=== PATIENT | female | born 1940 | race Caucasian/White ===

== ENCOUNTER 2024-02-04 22:53 | Emergency (ER) | payer OTHER, SELFPAY ==
[2024-02-04 22:54] VITALS: BP 179/73
[2024-02-04 22:55] VITALS: BP 179/73
[2024-02-04 23:00] VITALS: BP 167/96
--- NOTE | 2024-02-04 23:13 | ED.GENMED ---
History of Present Illness
General
Chief Complaint: Fall
Source: patient
Exam Limitations: none
Time Seen by Provider: 02/04/24 22:56
Travel History
Have you had any contact with someone who has COVID-19?: No
Do you have any symptoms of coronavirus? Fever > 100 degrees, chills, cough, shortness of breath, sore throat, loss of taste or smell, muscle aches, or headache?: No
History of Present Illness
History of Present Illness:
See MDM
Past History
Past History
ED Past Medical History: CHF, GERD, HTN, Hypercholesterolemia, Seizures and Other (Rheumatoid arthritis, psoriasis); Negative CAD or IDDM
ED Past Surgical History: Gynecological and Orthopedic
Social History
Tobacco: Non-smoker
Alcohol: Chronic alcoholic
Drug: None
Personal:
Living: with family
Employment: Employed
Family History
Family History: Hypertension
Phy Exam
Physical Exam
Physical Exam:
See MDM
Course
Orders/Labs/Results
Orders:
Orders
02/04/24 23:04
CT Head W/o Iv Contrast Urgent
Comment:
Reason For Exam: Fall, R sided head injury
02/04/24 23:24
Complete Blood Count/With Diff Urgent
Comprehensive Metabolic Panel Urgent
02/05/24 00:10
Insulin Aspart [NOVOLOG vial] 7 units SC NOW STA
02/05/24 00:50
Bedside Glucose- Treatment ONCE
02/05/24 01:08
Glucose Urgent
02/05/24 01:29
0.9% Sodium Chloride 1000 ml [Nss] 1,000 ml IV BOLUS
Abnormal Lab Results
02/04/24 02/05/24
2324 01:00
WBC 11.7 H 10^3/uL
(4.8-10.8)
MCH 31.4 H pg
(27.0-31.0)
Absolute Neuts (auto) 9.2 H 10^3/uL
(1.4-6.5)
Absolute Lymphs (auto) 1.1 L 10^3/uL
(1.2-3.4)
Absolute Monos (auto) 1.1 H 10^3/uL
(0.1-0.6)
Neutrophils % 78.8 H %
(42.2-75.2)
Lymphocytes % 9.3 L %
(20.5-51.1)
Monocytes % 9.5 H %
(1.7-9.3)
Sodium 132 L mmol/L
(135-145)
Carbon Dioxide 21 L mmol/L
(22-30)
BUN 22 H mg/dl
(7-17)
Glucose 548 H* mg/dl
(70-99)
POC Glucose 469 H* mg/dl
(70-99)
02/04/24 23:24
Vital Signs
Initial and Last Documented VS:
Initial Vital Signs
Temp Pulse Resp BP Pulse Ox
97.9 F 100 16 179/73 95
02/04/24 22:54 02/04/24 22:54 02/04/24 22:54 02/04/24 22:54 02/04/24 22:54
Last Documented Vital Signs
Temp Pulse Resp BP Pulse Ox
97.9 F 91 16 167/96 94
02/04/24 22:54 02/05/24 00:45 02/04/24 22:54 02/04/24 23:00 02/05/24 00:45
MDM/Problems Addressed
Differential Diagnosis Includes:
HPI and MDM Narrative:
83-year-old female presenting with head injury after fall. Patient states she woke up to close her blinds and states it was dark. She states she bent down to close her blinds and she fell forward hitting her head. She scraped her feet, her knees
and her shoulder. She is unconcerned about fracture but states she was too weak to get up
On exam, she has mild hematoma to right forehead. She is conversing and appears to be in no acute distress. She has abrasions to her feet and shoulder but no bony tenderness. Will obtain basic blood work and CT head
Physical exam
General: Well appearing and non-toxic
HEENT: protecting airway. Small hematoma right forehead
Neck: Nontender, supple
CV: No evidence of cyanosis. Regular rate and rhythm
Resp: No accessory muscle use
Abd: Non-distended
Extremities: No bony tenderness or obvious deformities to any extremity
Neuro: alert
Psych: Normal affect
Skin: Abrasions to feet and left shoulder
Problems Addressed including Acute and Chronic Conditions affecting care:
1. Head injury
Acuity: acute
Prognosis: stable
Details: Given age and fall, will obtain CT head
2. Hyperglycemia
Acuity: acute
Prognosis: unstable
Details: No evidence of DKA. Will give insulin
3. [ ]
Acuity: acute
Prognosis: stable
Details:
4. [ ]
Acuity: acute
Prognosis: stable
Details:
5. [ ]
Acuity:
Prognosis:
Details:
Updates
Patient found to be hyperglycemic. She has a history of diabetes but states she takes pills only. Will give dose of insulin. There is no evidence to suggest DKA
12:10 AM patient radiology indicating 3 mm frontotemporal subdural hematoma
Case discussed with neurosurgery who recommended transfer
1:30 AM Case discussed with admitting trauma surgeon Dr. Trotter. Will place in cervical collar
Differential Diagnosis (but not limited to): Intracranial hemorrhage, contusion, abrasion
Testing considered: Urinalysis
Drug therapy (if applicable): OTC meds, please see d/c instruction regarding Rx drugs
Amount and/or Complexity of Data Reviewed
Clinical info obtained from: Patient
External data reviewed: N/A
Labs I independently reviewed (but not limited to): Hyperglycemia
Radiology: N/A
Pulse Ox: not hypoxic
EKG independently reviewed: N/A
Gas Maker Helper: N/A
Critical Care: The high probability of a clinically significant, sudden or life threatening deterioration of the neurovascular system(s) required my full and direct attention, intervention and personal management. The aggregate critical care time
was 33 minutes. This time is in addition to time spent performing reported procedures but includes the following:
[x] Data Review and interpretation
[x] Patient assessment and monitoring of vital signs
[x] Documentation
[x] Medication orders and management
Risk of Complication:
Social Determinants of health: Good social support
Discussed with other providers: Neurosurgery, Trauma
Escalation of Care includes Admit/Obs: Given the traumatic subdural hematoma, will transfer Trauma Center
Occasional wrong word or 'sound a like' substitutions may have occurred due to the inherent limitations of voice recognition software. Read the chart carefully and recognize, using context, where substitutions have occurred.
*Critical Care Note
Total Time (30-74mins, 75-104mins- exclusive of procedures): 33 min
ED Attending Note
-
Portions of this chart may have been created with voice recognition software.� Occasional wrong word or��sound alike� substitutions may have occurred due to the inherent limitations of voice recognition software.
Discharge Plan
Departure
Patient Disposition: Acute Care Hospital
Date of Disposition: 02/05/24
Time of Disposition: 01:20
Discharge Problem:
SDH (subdural hematoma), Acute hyperglycemia
Prescriptions:
No Action
losartan 50 MG tablet
50 mg PO BID
Patient Comments:
07/12/16 unable to confirm with patient shes confused. All rx per pharmacy
levetiracetam 500 MG tablet
500 mg PO DAILY
amlodipine 2.5 MG tablet
2.5 mg PO DAILY
levothyroxine 50 MCG tablet
50 mcg PO DAILY
simvastatin 20 MG tablet
20 mg PO HS
furosemide [Lasix] 40 MG tablet
40 mg PO Q48H
famotidine 20 MG tablet
20 mg PO DAILY
acetaminophen 325 MG tablet
650 mg PO Q4HPRN PRN (Reason: FEVER OR PAIN)
glipizide 5 MG tablet extended release 24hr
5 mg PO DAILY 30 Days Qty: 30 3RF
tramadol 50 MG tablet
50 mg PO Q6HPRN PRN (Reason: moderate pain) Qty: 10 0RF
metformin 500 MG tablet extended release 24 hr
500 mg PO DAILY 30 Days Qty: 30 3RF
Referrals:
Zee Louis MD [Family Provider] -
Hospital Transfer
Other hospital: [facility]
I certify that the patient requires transfer: Yes
Discussed case with accepting physician: Dr. Trotter
Reason for transfer: higher level of care
Interventions
Interventions:
*Risk Screen - Suicide Last Done: 02/04/24 22:54
*General Assessment Last Done: 02/04/24 23:14
ED- Fall Risk Assessment Last Done: 02/04/24 23:14
ED-Musculoskeletal Assessment Last Done: 02/04/24 23:14
ED- Neurological Assessment Last Done: 02/04/24 23:14
ED-Skin Assessment Last Done: 02/04/24 23:14
Discharge Date and Time
Print Language: MALAY
[2024-02-04 23:38] LABS: % Basophils 0.5 % (0-2); % Eosinophils 1.6 % (0-6); % Immature Granulocytes 0.3 % (0-0.5); % Lymphocytes 9.3 % (20.5-51.1); % Monocytes 9.5 % (1.7-9.3); % Neutrophils 78.8 % (42.2-75.2); Absolute Basophils 0.1 10^3/uL (0-0.2); Absolute Eosinophils 0.2 10^3/uL (0-0.7); Absolute Lymphocytes 1.1 10^3/uL (1.2-3.4); Absolute Monocytes 1.1 10^3/uL (0.1-0.6); Absolute Neutrophils 9.2 10^3/uL (1.4-6.5); Hematocrit 43.5 % (37.0-47.0); Hemoglobin 15.1 g/dL (12.0-16.0); Mean Corp Hgb Conc. 34.7 g/dL (33.0-37.0); Mean Corpuscular Hgb 31.4 pg (27.0-31.0); Mean Corpuscular Volume 90.4 fL (81.0-99.0); Mean Platelet Volume 10.1 fL (7.4-10.4); Nucleated Red Blood Cells % 0 %; Platelet Count 245 10^3/uL (130-400); Red Blood Cell Count 4.81 10^6/uL (4.20-5.40); Red Cell Dist. Width 12.5 % (11.5-14.5); White Blood Cell Count 11.7 10^3/uL (4.8-10.8)
[2024-02-04 23:57] LABS: ALT (SGPT) 14 U/L (0-35); AST (SGOT) 19 U/L (14-36); Albumin 4.1 g/dl (3.5-5.0); Alkaline Phosphatase 81 U/L (38-126); Blood Urea Nitrogen 22 mg/dl (7-17); Calcium 10.1 mg/dl (8.4-10.2); Carbon Dioxide 21 mmol/L (22-30); Chloride 104 mmol/L (98-107); Glucose 548 mg/dl (70-99); Potassium 4.3 mmol/L (3.5-5.1); Sodium 132 mmol/L (135-145); Total Bilirubin 0.5 mg/dl (0.2-1.3); Total Protein 7.2 g/dl (6.3-8.2); eGFR > 60.00
[2024-02-05] MEDS: NOVOLOG vial 7 UNITS SC (00:22)
[2024-02-05 01:00] VITALS: BP 171/67
[2024-02-05 01:01] LABS: Glucose - Point of Care 469 mg/dl (70-99)
[2024-02-05] MEDS: NSS 1000 IV (01:37)
[2024-02-05 01:45] LABS: Glucose 489 mg/dl (70-99)
[2024-02-05 02:00] VITALS: BP 161/62
== END 2024-02-05 03:06 | disposition short-term general hospital (02) ==
LOC: EMR 22:53
PROVIDERS: EMERGENCY PHYSICIAN Student in an Organized Health Care Education/Training Program; FAMILY PHYSICIAN Family Medicine
DX: S06.5XAA Traumatic subdural hemorrhage with loss of consciousness status unknown, initial encounter (principal); W19.XXXA Unspecified fall, initial encounter; E11.65 Type 2 diabetes mellitus with hyperglycemia
CPT/HCPCS: 99291; 96372; 70450; 80053; 82947; 82962; 85025

== ENCOUNTER 2025-02-02 17:05 | Observation (INO) | payer OTHER, SELFPAY ==
[2025-02-02] VITALS (11 sets, daily range): BP systolic 131–169; BP diastolic 56–94; PULSE 80; O2SAT 96; BMI 27.0
[2025-02-02 13:00] LABS: % Basophils 0.6 % (0-2); % Eosinophils 1.8 % (0-6); % Immature Granulocytes 0.3 % (0-0.5); % Lymphocytes 14.3 % (20.5-51.1); Absolute Basophils 0.1 10^3/uL (0-0.2); Absolute Eosinophils 0.2 10^3/uL (0-0.7); Absolute Lymphocytes 1.8 10^3/uL (1.2-3.4); Absolute Monocytes 1.4 10^3/uL (0.1-0.6); Hematocrit 39.1 % (37.0-47.0); Hemoglobin 13.3 g/dL (12.0-16.0); Mean Corpuscular Hgb 29.3 pg (27.0-31.0); Mean Corpuscular Volume 86.1 fL (81.0-99.0); Mean Platelet Volume 10.3 fL (7.4-10.4); Nucleated Red Blood Cells % 0 %; Platelet Count 245 10^3/uL (130-400); Red Blood Cell Count 4.54 10^6/uL (4.20-5.40); Red Cell Dist. Width 12.3 % (11.5-14.5); White Blood Cell Count 12.4 10^3/uL (4.8-10.8)
[2025-02-02 13:16] LABS: ALT (SGPT) 11 U/L (0-35); AST (SGOT) 16 U/L (14-36); Albumin 3.9 g/dl (3.5-5.0); Alkaline Phosphatase 78 U/L (38-126); Blood Urea Nitrogen 19 mg/dl (7-17); Calcium 9.8 mg/dl (8.4-10.2); Carbon Dioxide 26 mmol/L (22-30); Chloride 99 mmol/L (98-107); Glucose 453 mg/dl (70-99); Potassium 4.1 mmol/L (3.5-5.1); Sodium 135 mmol/L (135-145); Total Bilirubin 0.7 mg/dl (0.2-1.3); Total Protein 6.9 g/dl (6.3-8.2); eGFR > 60.00
[2025-02-02] MEDS: NOVOLOG vial 10 UNITS SC (13:46)
[2025-02-02] MEDS: NSS 1000 IV (13:47)
[2025-02-02] MEDS: TYLENOL 1000 MG PO (14:42)
--- NOTE | 2025-02-02 14:46 | ED.GENMED ---
History of Present Illness
General
Chief Complaint: Fall
Source: patient
Exam Limitations: none
Time Seen by Provider: 02/02/25 12:54
Nursing documentation reviewed up to this point in time: agreed with
History of Present Illness
History of Present Illness:
84-year-old female with past medical history of CHF hypertension, diabetes, seizure disorder alcohol abuse presenting to the emergency department today with concerns of a fall landing on the buttock region. Did not hit head did not lose
consciousness. EMS brought her in and claims that her sugar was in the 400s.
Past History
Past History
ED Past Medical History: CHF, GERD, HTN, Hypercholesterolemia, Seizures and Other (Rheumatoid arthritis, psoriasis); Negative CAD or IDDM
ED Past Surgical History: Gynecological and Orthopedic
Social History
Tobacco: Non-smoker
Alcohol: Chronic alcoholic
Drug: None
Personal:
Living: with family
Employment: Employed
Family History
Family History: Hypertension
Review of Systems
Review of Systems
Allergies reviewed?: Yes
All Other Systems: ROS reviewed and negative except as documented in HPI and ROS
Phy Exam
Physical Exam
Physical Exam:
GENERAL: Alert , in no apparent distress
EYE: pupils equal and reactive
NECK: Supple, no significant adenopathy.
ENT: o/p clr, mmm.
CARDIAC: Regular rate and rhythm .
LUNGS: Clear breath sounds bilaterally, no acute respiratory distress, no wheezes/rales/rhonchi
ABDOMEN: Soft, without focal tenderness, no r/g, no cvat
NEUROLOGICAL: Alert and oriented, no focal neuro deficits
SKIN: Warm and dry, skin intact.
MUSCULOSKELETAL: Discomfort to the low back and tailbone region. No overlying skin changes no edema, well perfused.
PSYCH: Normal and appropriate interaction.
Course
Orders/Labs/Results
Orders:
Orders
02/02/25 12:48
CMP [Comprehensive Metabolic Panel] Urgent
Complete Blood Count/With Diff Urgent
02/02/25 13:30
Urinalysis Reflex To Culture Urgent
0.9% Sodium Chloride 1000 ml [Nss] 1,000 ml IV BOLUS
Insulin Aspart [NOVOLOG vial] 10 units SC NOW STA
Coccyx/Sacrum, 2 View CR [CR Sacrum/coccyx Min 2 View] Urgent
Comment:
Reason For Exam: fall hit low back
Lumbar Spine, 2 or 3 View [CR Lumbar Spine 2 Or 3 Views] Urgent
Comment:
Reason For Exam: low back pain
02/02/25 14:38
Acetaminophen [Tylenol] 1,000 mg PO NOW STA
02/02/25 14:47
Bedside Glucose- Treatment ONCE
Pt Eval And Treat Urgent
Activity Level: Ambulate
02/02/25 16:25
CT Pelvis W/o Iv Contrast Urgent
Comment:
Reason For Exam: fall low back pain, cant weight bear
02/02/25 16:26
Case Management Consult ONCE
Case Management Consult: Discharge Planning
02/02/25 16:27
Add On- LAB Urgent
Tests Added?: alcohol level
Abnormal Lab Results
02/02/25 02/02/25
12:48 14:32
WBC 12.4 H 10^3/uL
(4.8-10.8)
Absolute Neuts (auto) 9.0 H 10^3/uL
(1.4-6.5)
Absolute Monos (auto) 1.4 H 10^3/uL
(0.1-0.6)
Lymphocytes % 14.3 L %
(20.5-51.1)
Monocytes % 11.0 H %
(1.7-9.3)
BUN 19 H mg/dl
(7-17)
Glucose 453 H* mg/dl
(70-99)
POC Glucose 357 H mg/dl
(70-99)
02/02/25 12:48
02/02/25 12:48
Vital Signs
Initial and Last Documented VS:
Initial Vital Signs
BP Pulse Ox
161/86 95
02/02/25 12:37 02/02/25 12:37
Last Documented Vital Signs
Temp Pulse Resp BP Pulse Ox
98.1 F 84 17 151/64 93
02/02/25 12:39 02/02/25 15:15 02/02/25 15:15 02/02/25 14:00 02/02/25 15:15
MDM/Problems Addressed
MDM/Problems Addressed:
84-year-old female presenting to the emergency department today with concerns of a trip and fall hitting her low back did not hit her head did not lose consciousness. Generally feels well otherwise. Sugar level elevated here was given fluids and
dose of insulin. X-rays performed of the low back showing arthritic changes but no evidence of emergent injury.
ED Attending Note
-
Portions of this chart may have been created with voice recognition software.� Occasional wrong word or��sound alike� substitutions may have occurred due to the inherent limitations of voice recognition software.
Discharge Plan
Departure
Patient Disposition: Admit
Date of Disposition: 02/02/25
Time of Disposition: 16:30
Admit to: Med/Surg
Admit to doctor: Sayday
Presentation/result/management discussed w/ accepting MD/DO: Hospitalist
Patient with high blood pressure during this ER visit?: No
Condition: Good
Covid-19: Not Applicable
Discharge Problem:
Fall, Ambulatory dysfunction, Back pain
Prescriptions:
No Action
losartan 50 MG tablet
50 mg PO DAILY
levetiracetam 500 MG tablet
500 mg PO DAILY
amlodipine 2.5 MG tablet
2.5 mg PO DAILY
levothyroxine 50 MCG tablet
50 mcg PO DAILY
simvastatin 20 MG tablet
20 mg PO HS
acetaminophen 325 MG tablet
325 mg PO HS
metformin 500 MG tablet extended release 24 hr
500 mg PO DAILY 30 Days Qty: 30 3RF
glipizide 10 mg Tablet
10 mg PO DAILY
sertraline 50 mg Tablet
50 mg PO DAILY
Referrals:
Jack Santa MD [Family Provider] -
Interventions
Interventions:
*Risk Screen - Suicide Last Done: 02/02/25 12:42
*Neglect/Abuse Screening Last Done: 02/02/25 12:42
*ED- Fall Risk Assessment Last Done: 02/02/25 12:44
*ED COVID-19 Vaccine History Last Done: 02/02/25 12:44
ED-Musculoskeletal Assessment Last Done: 02/02/25 12:44
ED- Neurological Assessment Last Done: 02/02/25 12:44
ED-Skin Assessment Last Done: 02/02/25 12:45
Discharge Date and Time
Print Language: SUDANESE
[2025-02-02 15:44] LABS: Glucose - Point of Care 357 mg/dl (70-99)
--- NOTE | 2025-02-02 16:31 | HPS.HSE ---
Family Physician
-
Family Physician: Jack Santa
Chief Complaint
-
fall
History of Present Illness
84-year-old female with past medical history of CHF hypertension, diabetes, seizure disorder alcohol abuse presenting to the emergency department today with concerns of a fall landing on the buttock region.her knee clipped and lost the balance and
fell on her buttocks. she does not remember hitting the head. but she was having headache when she got here in the ER. denied dizzy, lightheaded. denied fever, chills,congestion and cough. denied chest pain, sob. denied abdominal pain,n,v,d. denied
dysuria or hematuria.
patient was evaluated by PT in the ER. patient was not able to walk. admitting for further management.
Medical History
Past Medical History
Past Medical History: Reports Other
Additional Past Medical History:
Hypertension, hypothyroidism, type 2 diabetes, seizure, depression, psoriasis, right heart failure, breast cancer, arthritis
Past Surgical History: Reports Other
Additional Past Surgical History:
Right breast lumpectomy, bilateral tubal ligation
Social History
Tobacco: Non-smoker
Alcohol: None
Drug: None
Personal: Single
Living: Alone
Family History
Family History: Not pertinent
Allergies / Home Medications
Allergies reflects when Allergies were last updated in [facility].
Home Medications with original date entered in [facility]
Allergy/Medication List:
Allergies
Allergy/AdvReac Type Severity Reaction Status Date / Time
latex [Latex] Allergy Itching Verified 06/29/21 19:55
Home Medications
amlodipine 2.5 mg tablet 2.5 mg PO DAILY Blood pressure 07/12/16
levetiracetam 500 mg tablet 500 mg PO DAILY Seizures 07/12/16
levothyroxine 50 mcg tablet 50 mcg PO DAILY Thyroid 07/12/16
losartan 50 mg tablet 50 mg PO DAILY Blood pressure 07/12/16
simvastatin 20 mg tablet 20 mg PO HS High cholesterol 07/12/16
acetaminophen 325 mg tablet 325 mg PO HS 12/27/16
metformin 500 mg tablet,extended release 24 hr 500 mg PO DAILY 30 days #30 tabs 07/02/21
glipizide 10 mg tablet 10 mg PO DAILY 02/02/25
sertraline 50 mg tablet 50 mg PO DAILY 02/02/25
Review of Systems
-
Constitutional: Reports No Symptoms
EENT: Reports No Symptoms
Respiratory: Reports No Symptoms
Cardiac: Reports No Symptoms
Abdomen/GI: Reports No Symptoms
: Reports No Symptoms
Musculoskeletal: Reports No Symptoms
Skin: Reports No Symptoms and Other (Left LE with flaky red skin)
Neurological: Reports Headache
Endocrine: Reports No Symptoms
Hematologic/Lymphatic: Reports No Symptoms
Psych: Reports No Symptoms
Physical Exam
Vital Signs
Vital Signs
Temp Pulse Resp BP Pulse Ox
98.1 F 84 17 151/64 93
02/02/25 12:39 02/02/25 15:15 02/02/25 15:15 02/02/25 14:00 02/02/25 15:15
Physical Exam
General: Well Developed, Well Nourished and No Apparent Distress
HEENT: NormoCephalic, Moist mucous membranes and Atraumatic
Respiratory: Clear
Cardiac: S1/S2 and Regular Rhythm; No Murmur or Rub
GI: Soft, Non Tender, Non Distended and Normal Bowel Sounds; No Organomegaly
Rectal: Deferred by Provider
Musculoskeletal: No Clubbing, No Cyanosis and No Edema
Skin: Rash and Other (left LE red flaky skin)
Neuro: AO x 3 and Nonfocal/grossly intact
Psych: Calm
Laboratory Results
-
02/02/25 12:48
02/02/25 12:48
Laboratory Results
Total Bilirubin 0.7 mg/dl (0.2-1.3) 02/02/25 12:48
AST 16 U/L (14-36) 02/02/25 12:48
ALT 11 U/L (0-35) 02/02/25 12:48
Alkaline Phosphatase 78 U/L (38-126) 02/02/25 12:48
Data Reviewed
-
Lab Data: Labs Reviewed by me
Impression/Plan
-
#ambulatory dysfunction/fall
-x ray with no acute fracture
-sacrum and coccyx with the impression of Severe multilevel lumbar discogenic degenerative disease. 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
spondylolysis).Grade 1 anterolistheses of L3 on L4 and L4 on L5 secondary to severe facet joint arthrosis. Mild right convex curvature of the lower lumbar spine.
-lumbar spine x ray with severe multilevel lumbar discogenic degenerative disease. 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
-obtain CT pelvis
-will obtain head CT
-PT/OT consulted
#leukocytosis likely stress reaction
-wbc 12.4
-ctm
#type 2 DM with hyperglycemia
-blood sugar elevated in 453
- Glipizide
-hold metoformin
- Sliding scale
- CHO diet
-obtain BHB
# History of seizure
- Keppra continued
# Depression
- Sertraline
# Hyperlipidemia
- Statin continued
Hypertension
- Norvasc, losartan continue with hold parameters
DM-II
- Stable. Continue outpatient glipizide.
- Monitor glucose and cover with SSI if needed.
Hypothyroidism
- Stable. Continue current dose of T4 supplementation.
DVT Prophylaxis: Lovenox
Code Status: DNR
[2025-02-02 16:35] LABS: Glucose - Point of Care 219 mg/dl (70-99)
--- NOTE | 2025-02-02 17:06 | W.PN.UPDATE ---
Addendum entered and electronically signed by Lele Krishnan MD 02/03/25 08:11:
02/02/25 CT pelvis
No osseous pelvic or sacral fracture.
No hip fracture or dislocation.
Original Note:
Update Note
Progress Note Update
This note serves as an addendum to the H&P by drill rig operator helper FERNANDO
Kelsea JULEE
HPI
84M [facility] with HX HTN, DM-II , Sz disorder, , HLD and hypothyroidism , HX chr gait dysfunction, balance dysfunction , use walker, [facility] s/p OSH Fall :
- s/p fall reports loss balance and landing on the buttocks
- denied LoC
- report LBP
- hi BG 400s
Reviewed VS: AFVSS
PE
Gen: Not toxic , Obese
HEENT: atraumatic
Neck: supple
Lungs: CTA
Cor: RRR S1 s2
Abdomen: benign
CLINICAL TRAINING SPECIALIST: AAO3
MS: No pint tenderness
Psych: Nl mood and affect
Data
WCC 12.4
Unremarkable BMP
AG 10
Nl Cr.
Nl eGFR
BG 453 s/p Insulin 10 units given
Pending BHB
Pending UA
Pending HCT w/o
Pending pelvis w/o
CR Lumbar Spine 2 Or 3 Views; CR Sacrum/coccyx Min 2 View
LUMBAR SPINE:
1. Severe multilevel lumbar discogenic degenerative disease.
2. 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
3. Grade 1 anterolistheses of L3 on L4 and L4 on L5 secondary to severe facet joint arthrosis.
4. Mild right convex curvature of the lower lumbar spine.
SACRUM and COCCYX:
1. Moderate bilateral osteoarthritis of the sacroiliac joints.
2. Mild bilateral osteoarthritis of the hips.
Last hospitalist admission: 06/30/2021 - 07/02/2021
ASSESSMENT & PLAN
acute mid lower back pain s/p fall complicated with acute gait dysfunction : No XR Fxs
S/P fall and landed on butts due to loss balance
HX Chr gait dysfunction need walker
- PT eval and need significant assistance
- agree with CT Pelvis to r/o occult Fx
- f/p CT pelvis and HCT to complete w/u
- PT/OT
- To evaluate for safe DC plan
Hyperglycemia : No AG MA
Uncontrol DM
HX DMT2
- check UA to r/o acute infection
- check BHB
- hold metformin
- c/w Glipizide
- add ISS moderate scale
- ADA 2000 toño
- Trend BG
Essential Hypertension
- Stable.
- Continue PATTERNMAKER APPRENTICE METAL amlodipine and Losartan
Hypothyroidism
- Stable.
- Continue current dose of T4 supplementation.
HLD
- on Simvastatin
Depression
- stable
- on sertraline
Remote HX Sz
- c/w PATTERNMAKER APPRENTICE METAL Keppra
DVT Px: LMWH
DNR
IP MS
[2025-02-02 17:09] LABS: Alcohol None Detected
[2025-02-02 17:21] LABS: B-Hydroxybutyrate 0.83 mmol/L (0.02-0.27)
[2025-02-02] MEDS: TYLENOL 650 MG PO (18:43)
--- NOTE | 2025-02-02 20:00 | PTCARENOTE ---
Pt recieved from ED via stretcher at 1999. Pt pleasant, AAOx3, and VSS. Pt pulled over into bed from stretcher. Pt complains of 6/10 pain on her buttocks. Pt receptive to room and call maza. Pt bed in lowest position and call maza within reach. Pt
educated on importance of call maza usage, pt relays understanding and cooperation. Will continue with current plan of care.
[2025-02-02] MEDS: LOVENOX 40 MG SC (20:48)
[2025-02-02] MEDS: LIPITOR 10 MG PO (20:49)
[2025-02-02 20:56] LABS: Glucose - Point of Care 203 mg/dl (70-99)
[2025-02-03 00:57] LABS: Urine Albumin 3+ (Neg - Trace); Urine Bilirubin Negative (Negative); Urine Character Clear (Clear); Urine Color Yellow; Urine Glucose 4+ (Negative); Urine Ketone Negative (Negative); Urine Leukocyte 1+ (Negative); Urine Nitrite Negative (Negative); Urine Occult Blood 4+ (Negative); Urine Urobilinogen Negative (Neg - 1+)
[2025-02-03 01:21] LABS: Urine Amorphous Seen; Urine Squamous Cell >30 /LPF (Few)
[2025-02-03 01:23] LABS: Urine Bacteria Moderate (Negative); Urine Red Blood Cell 50-60 /HPF (0-2)
[2025-02-03] MEDS: SYNTHROID 50 MCG PO (05:15)
[2025-02-03 06:46] LABS: Hematocrit 37.9 % (37.0-47.0); Hemoglobin 12.8 g/dL (12.0-16.0); Mean Corp Hgb Conc. 33.8 g/dL (33.0-37.0); Mean Corpuscular Hgb 29.3 pg (27.0-31.0); Mean Corpuscular Volume 86.7 fL (81.0-99.0); Mean Platelet Volume 9.9 fL (7.4-10.4); Platelet Count 218 10^3/uL (130-400); Red Blood Cell Count 4.37 10^6/uL (4.20-5.40); Red Cell Dist. Width 12.9 % (11.5-14.5); White Blood Cell Count 8.5 10^3/uL (4.8-10.8)
--- NOTE | 2025-02-03 07:29 | W.PN.HOSP.TC ---
Today's Communication/Plan
-
Glycemic control
PT/OT
wound care
discharge planning SNF rehab
Assessment / Plan
Assessment / Plan
Physical Exam
General: no acute distress appears comfortable at this time
HEENT: NormoCephalic, Moist mucous membranes and Atraumatic
Respiratory: Clear
Cardiac: S1/S2 and Regular Rhythm; No Murmur or Rub
GI: Soft, Non Tender, Non Distended and Normal Bowel Sounds; No Organomegaly
Musculoskeletal: No Clubbing, No Cyanosis, No Edema, ulnar deviation fingers hands bilateral likely d/t rheumatoid arthritis
Skin: b/l LE red flaky skin
Neuro: AO x 3 Conversant coherent
Psych: Calm
84F HFpEF HTN DM Sz d/o depression here for fall at home, lives alone, significant ambulatory dysfunction, PT eval recommended SNF rehab. Patient also presenting with uncontrolled diabetes severe hyperglycemia without anion gap acidosis.
#ambulatory dysfunction/fall
-x ray with no acute fracture
-sacrum and coccyx with the impression of Severe multilevel lumbar discogenic degenerative disease. 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
spondylolysis).Grade 1 anterolistheses of L3 on L4 and L4 on L5 secondary to severe facet joint arthrosis. Mild right convex curvature of the lower lumbar spine.
-lumbar spine x ray with severe multilevel lumbar discogenic degenerative disease. 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
-CT pelvis appreciated no acute abn's
-CT head appreciated not acute abn's
-PT/OT consult appreciated SNF rehab
#leukocytosis likely stress reaction
resolved
#type 2 DM with hyperglycemia
-blood sugar elevated in 453 since improved
-BHB mildly elevated
-no anion gap acidosis
-DM SHOW CARD WRITER eval appreciated, cont oral diabetic medications and insulin as per SHOW CARD WRITER
# History of seizure
- Keppra continued
# Depression
- Sertraline
# Hyperlipidemia
- Statin continued
Hypertension
- Norvasc, losartan continue with hold parameters
Hypothyroidism
- Stable. Continue current dose of T4 supplementation.
Coccyx stage 2 pressure injuries.
Bilateral buttocks stage 3 pressure injury.
Scattered dermal pink/scabbed abrasions Le's and R index finger suspect from patient picking her skin.
Heels blanchable red.
Abdominal fold with mild MASD.
-Wound care consult appreciated
-cont local wound care
DVT Prophylaxis: Lovenox
Code Status: DNR
I spent a total of 45 minutes with the patient or on the floor. More than 50% of this time involved counseling and coordination of care.
Anticipated Discharge: 24 - 48 hours
Subjective/Interval History
-
Date of Service: February 03, 2025
No acute distress sitting up comfortably in bed. Patient reports overall feeling well. Denies new acute issues at this time.
Objective Data
-
Labs:
Laboratory Results
02/03/25
06:11
WBC 8.5
Hgb 12.8
Hct 37.9
Plt Count 218
Vital Signs:
Vital Signs
Temp Pulse Resp BP Pulse Ox
97.6 F 79 18 140/65 94
02/02/25 22:43 02/02/25 22:43 02/02/25 22:43 02/02/25 22:43 02/02/25 22:43
I&O
02/02/25 02/03/25 02/04/25
06:59 06:59 06:59
Output Total 500 / 500
Balance -500 / -500
[2025-02-03] MEDS: KEPPRA 500 MG PO (07:44)
[2025-02-03] MEDS: GLUCOTROL 10 MG PO ×2 (07:44→17:20)
[2025-02-03] MEDS: COZAAR 50 MG PO (07:44)
[2025-02-03] MEDS: ZOLOFT 50 MG PO (07:44)
[2025-02-03] MEDS: NORVASC 2.5 MG PO (07:44)
[2025-02-03 07:50] VITALS: BP 164/78
[2025-02-03 08:28] LABS: Glucose - Point of Care 253 mg/dl (70-99)
[2025-02-03 08:34] LABS: Glycohemoglobin (HgbA1c) 15.5 % (4.0-5.6)
[2025-02-03] MEDS: NOVOLOG FLEXPEN-MODERATE RESISTANCE 5 UNITS SC ×2 (09:30→13:26)
--- NOTE | 2025-02-03 10:30 | WOUNDNOTE ---
[facility] RN note: Patient admitted with ambulation dysfunction, fall prior to admission. Patient lives alone.
See H&P for complete history.
PMH: CHF, HTN, DM, seizure disorder, alcohol use disorder, psoriasis, breast cancer, lumpectomy, arthritis.
Wound Location and type/assessment: Patient admitted with: Coccyx stage 2 pressure injuries. Bilateral buttocks stage 3 pressure injury. Scattered dermal pink/scabbed abrasions Le's and R index finger suspect from patient picking her skin. Heels
blanchable red. Abdominal fold with mild MASD.
Appetite: on 2000 calorie diet.
Pressure redistribution devices in place: [employer] air bed with static air overlay.
Plan: Coccyx/buttocks dressing changed. Silicone border foam applied to R lateral ankle and R anterior ankle abrasions. Protective foam to heels. Patient turned with help from [facility] RN retail event assistant [place]. Heels off bed with pillow. Air chair cushion
given.
Will confirm orders with Dr. Daugherty and discussed with MURRAY Guerin.
Care plan to be updated and will follow as needed.
Note to case management of equipment requested for discharge: Air mattress.
Recommend follow up at wound care center upon discharge.
--- NOTE | 2025-02-03 10:37 | WOUNDNOTE ---
SACRAL/COCCYX/BUTTOCKS
[2025-02-03 11:28] VITALS: BP 135/65; PULSE 68
[2025-02-03 11:45] VITALS: BMI 27.0
[2025-02-03 13:26] LABS: Glucose - Point of Care 299 mg/dl (70-99)
[2025-02-03] MEDS: GLUCOPHAGE XR EXTENDED RELEASE 500 MG PO (13:27)
--- NOTE | 2025-02-03 13:42 | PN.DE.MGMTRT ---
Insulin Management
- -
02/03/2025: Diabetes Management Consult
84 year old female admitted s/p fall at home. PMH: CHF, HTN, Seizure disorder, ETOH abuse and T2DM.
Pt reports she does not adhere to any dietary restrictions and that her diet consists mainly of a high CHO concentrated diet (eats ice cream daily)
Was taking Glipizide 10mg QD and Metformin 500mg daily. She doesn't have a glucose monitor and doesn't test her blood sugars. A1C 15.5%, Cr 0.6, eGFR >60.
Pt awake, alert, oriented, offers no complaints, able to discuss diabetes management
Noted for persistent Hyperglycemia since admission, glucose range 219 to 357 requiring 5 units of corrective insulin with meals.
FBG 253 this AM, 299 pre-lunch today. Discussed diabetes management options of MDI vs basal insulin combo with oral agents.
Pt states she will not be able to manage taking insulin 4 times a day. She is receptive to 1 insulin shot a day in combination with oral diabetes medications.
Will start Lantus 15 units daily, 1st does NOW and will adjust her oral agents to Metformin 1000mg BID and Glipizide 5mg BID
Cont moderate corrective insulin with meals. Diabetes Nurse Educator will see pt tomorrow for monitor and insulin instructions.
Diabetes History
- -
Type of Diabetes: 2 requiring insulin
Pre-Admission Diabetes Regimen
Lab Results
Hemoglobin A1c 15.5 % (4.0-5.6) H 02/03/25 06:11
Insulin Pump Settings
IP Diabetes Regimen
02/02/25 02/02/25 02/02/25
14:32 16:32 20:54
POC Glucose 357 H 219 H 203 H
02/03/25 02/03/25
08:27 13:24
POC Glucose 253 H 299 H
Patient Education
[2025-02-03] MEDS: LANTUS 0.15 UNITS SC (14:33)
--- NOTE | 2025-02-03 15:57 | WOUNDNOTE ---
Pipe Hansen re: recommend an air mattress at SNF for patient. She has coccyx and buttocks pressure injuries.
[2025-02-03 16:05] VITALS: BP 158/82
--- NOTE | 2025-02-03 16:28 | CM ---
Patient admitted under obs, GUPTA letter provided to patient, health services manager reviewed patient's chart and patient lives alone in a town home, patient has 2 stair glides in home and 2 walkers, one on each floor, patient independent with adl's and uses
the walkers with ambulation, patient sleeps in a recliner, patient was seen by physical therapy and recommendation is for skilled placement options reviewed and patient has selected [facility], [facility] and [facility]. referrals sent.
PCP: Dr. Santa
Pharmacy: [facility] in [place]
Plan; Skilled placement.
[2025-02-03 16:55] LABS: Glucose - Point of Care 206 mg/dl (70-99)
[2025-02-03] MEDS: NOVOLOG FLEXPEN-MODERATE RESISTANCE 3 UNITS SC (17:16)
[2025-02-03] MEDS: LOVENOX 40 MG SC (17:17)
[2025-02-03] MEDS: GLUCOPHAGE 1000 MG PO (17:17)
[2025-02-03] MEDS: DESENEX/MITRAZOL/ZEASORB 1 APPLIC TOPICAL (19:12)
[2025-02-03] MEDS: TYLENOL 650 MG PO (19:20)
[2025-02-03] MEDS: LIPITOR 10 MG PO (21:31)
[2025-02-03] MEDS: TYLENOL 325 MG PO (21:32)
[2025-02-03 21:41] LABS: Glucose - Point of Care 198 mg/dl (70-99)
[2025-02-03 23:27] VITALS: BP 144/65
[2025-02-04] MEDS: TYLENOL 650 MG PO ×2 (02:07→20:19)
[2025-02-04] MEDS: SYNTHROID 50 MCG PO (05:41)
--- NOTE | 2025-02-04 07:16 | W.PN.HOSP.TC ---
Today's Communication/Plan
-
Glycemic Control
Tobramycin eye drops left eye
Possible discharge SNF rehab tomorrow
Assessment / Plan
Assessment / Plan
Physical Exam
General: no acute distress appears comfortable at this time
HEENT: NormoCephalic, Moist mucous membranes and Atraumatic
Respiratory: Clear
Cardiac: S1/S2 and Regular Rhythm; No Murmur or Rub
GI: Soft, Non Tender, Non Distended and Normal Bowel Sounds; No Organomegaly
Musculoskeletal: No Clubbing, No Cyanosis, No Edema, ulnar deviation fingers hands bilateral likely d/t rheumatoid arthritis
Skin: b/l LE red flaky skin
Neuro: AO x 3 Conversant coherent
Psych: Calm
84F HFpEF HTN DM Sz d/o depression here for fall at home, lives alone, significant ambulatory dysfunction, PT eval recommended SNF rehab. Patient also presenting with uncontrolled diabetes severe hyperglycemia without anion gap acidosis.
#ambulatory dysfunction/fall
-x ray with no acute fracture
-sacrum and coccyx with the impression of Severe multilevel lumbar discogenic degenerative disease. 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
spondylolysis).Grade 1 anterolistheses of L3 on L4 and L4 on L5 secondary to severe facet joint arthrosis. Mild right convex curvature of the lower lumbar spine.
-lumbar spine x ray with severe multilevel lumbar discogenic degenerative disease. 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
-CT pelvis appreciated no acute abn's
-CT head appreciated not acute abn's
-PT/OT consult appreciated SNF rehab
Lt Eye Conjunctivitis
-Tobramycin eye drops started
#leukocytosis likely stress reaction
resolved
#type 2 DM with hyperglycemia
-blood sugar elevated in 453 since improved
-BHB mildly elevated
-no anion gap acidosis
-DM SECURITY TRAINER eval appreciated, cont oral diabetic medications and insulin as per SECURITY TRAINER
# History of seizure
- Keppra continued
# Depression
- Sertraline
# Hyperlipidemia
- Statin continued
Hypertension
- Norvasc, losartan continue with hold parameters
Hypothyroidism
- Stable. Continue current dose of T4 supplementation.
Coccyx stage 2 pressure injuries.
Bilateral buttocks stage 3 pressure injury.
Scattered dermal pink/scabbed abrasions Le's and R index finger suspect from patient picking her skin.
Heels blanchable red.
Abdominal fold with mild MASD.
-Wound care consult appreciated
-cont local wound care
DVT Prophylaxis: Lovenox
Code Status: DNR
I spent a total of 40 minutes with the patient or on the floor. More than 50% of this time involved counseling and coordination of care.
Anticipated Discharge: Within 24 hours
Subjective/Interval History
-
Date of Service: February 04, 2025
No acute distress. Appears well. Left eye irritation redness itching noted.
Objective Data
-
Labs:
Laboratory Results
02/04/25
06:45
WBC Pending
Hgb Pending
Hct Pending
Plt Count Pending
Sodium Pending
Potassium Pending
Chloride Pending
Carbon Dioxide Pending
BUN Pending
Creatinine Pending
Glucose Pending
Calcium Pending
Vital Signs:
Vital Signs
Temp Pulse Resp BP Pulse Ox
97.8 F 75 18 144/65 98
02/03/25 23:27 02/03/25 23:27 02/03/25 23:27 02/03/25 23:27 02/03/25 23:27
I&O
02/03/25 02/04/25 02/05/25
06:59 06:59 06:59
Intake Total 1200 / 1200
Output Total 500 / 500
Balance -500 / -500 1200 / 1200
[2025-02-04 07:18] LABS: Hematocrit 38.2 % (37.0-47.0); Mean Corpuscular Hgb 29.9 pg (27.0-31.0); Mean Corpuscular Volume 87.8 fL (81.0-99.0); Mean Platelet Volume 10.1 fL (7.4-10.4); Platelet Count 232 10^3/uL (130-400); Red Blood Cell Count 4.35 10^6/uL (4.20-5.40); Red Cell Dist. Width 12.9 % (11.5-14.5); White Blood Cell Count 8.5 10^3/uL (4.8-10.8)
[2025-02-04 07:21] VITALS: BP 160/79
[2025-02-04 07:30] LABS: Glucose - Point of Care 186 mg/dl (70-99)
[2025-02-04 07:40] LABS: Blood Urea Nitrogen 17 mg/dl (7-17); Calcium 9.6 mg/dl (8.4-10.2); Carbon Dioxide 29 mmol/L (22-30); Chloride 102 mmol/L (98-107); Estimated Creatinine Clearance 65 ml/min; Glucose 170 mg/dl (70-99); Potassium 4.3 mmol/L (3.5-5.1); Sodium 139 mmol/L (135-145); eGFR > 60.00
[2025-02-04] MEDS: NOVOLOG FLEXPEN-MODERATE RESISTANCE 1 UNITS SC (07:57)
[2025-02-04] MEDS: COZAAR 50 MG PO (07:57)
[2025-02-04] MEDS: DESENEX/MITRAZOL/ZEASORB 1 APPLIC TOPICAL ×2 (07:57→20:20)
[2025-02-04] MEDS: KEPPRA 500 MG PO (07:58)
[2025-02-04] MEDS: GLUCOTROL 10 MG PO ×2 (07:58→17:08)
[2025-02-04] MEDS: ZOLOFT 50 MG PO (07:58)
[2025-02-04] MEDS: GLUCOPHAGE 1000 MG PO ×2 (07:58→17:07)
[2025-02-04] MEDS: NORVASC 2.5 MG PO (07:58)
[2025-02-04 08:07] LABS: TSH Reflex To Free T4 1.97 uIU/ml (0.47-4.68)
--- NOTE | 2025-02-04 08:15 | PN.DE.MGMTRT ---
Insulin Management
- -
02/04/2025: Diabetes Management Consult
84 year old female admitted s/p fall at home. PMH: CHF, HTN, Seizure disorder, ETOH abuse and T2DM.
Pt reports she does not adhere to any dietary restrictions and that her diet consists mainly of a high CHO concentrated diet (eats ice cream daily)
Was taking Glipizide 10mg QD and Metformin 500mg daily. She doesn't have a glucose monitor and doesn't test her blood sugars. A1C 15.5%, Cr 0.6, eGFR >60.
Discussed diabetes management options of MDI vs basal insulin combo with oral agents.
Pt states she will not be able to manage taking insulin 4 times a day. She is receptive to 1 insulin shot a day in combination with oral diabetes medications.
Pt awake, alert, oriented, offers no complaints, able to discuss diabetes management
Was started on Lantus 15 units yesterday, glucose improved but remains elevated, 206 to 299, HS was 198
Will increase AM Lantus dose to 20 units. Cont Metformin 1000mg BID and Glipizide 10mg BID
Cont moderate corrective insulin with meals.
Diabetes Nurse Educator will see pt today for monitor and insulin instructions.
Diabetes History
- -
Type of Diabetes: 2 requiring insulin
Pre-Admission Diabetes Regimen
02/04/25
06:45
Creatinine 0.6
Lab Results
Hemoglobin A1c 15.5 % (4.0-5.6) H 02/03/25 06:11
Insulin Pump Settings
IP Diabetes Regimen
02/03/25 02/03/25 02/03/25
08:27 13:24 16:54
Glucose
POC Glucose 253 H 299 H 206 H
02/03/25 02/04/25 02/04/25
21:40 06:45 07:28
Glucose 170 H
POC Glucose 198 H 186 H
Meal type: Breakfast
Amount consumed: 100%
Patient Education
[2025-02-04] MEDS: LANTUS SC (08:48)
[2025-02-04] MEDS: LANTUS 0.2 UNITS SC (09:18)
[2025-02-04 11:27] VITALS: BMI 26.1
--- NOTE | 2025-02-04 11:33 | CM ---
Chart reviewed and physical therapy have recommended skilled placement for patient referrals sent to skilled facilities and patient has been accepted at [facility], rifle case repairer will contact [facility] admissions to check on a bed for patient tomorrow,
patient will need Auth.
[facility]

Plan; Skilled placement at [facility] tomorrow will need updated PT notes for Auth.
--- NOTE | 2025-02-04 11:57 | PTCARENOTE ---
02/04/2025 DIABETES EDUCATION
I met with Velia to review diabetes management.
I educated on physiology of T2D, organ damage, managing with medications, monitoring BG, nutrition, activity, sleep and managing stress. I reinforced signs of hyperglycemia, hypoglycemia and hypoglycemia protocol; BS parameters and recommended HbA1c
goals, and outpatient DSME program. Written material provided. Discussed nutrition at length, encouraged a lot of water and eliminating drinks with sugar and sweets. Educated that sugar free products should not raise glucose levels.
I educated, reviewed and demonstration use of Contour Next glucometer, member acknowledged understanding and was unable to perform demonstration due to arthritis in hands. States she has rubber gloves at home that help her with tasks involving her
hands.
Provided her with a Contour Next sample kit.
I educated and demonstrated on insulin injection technique, timing, and storage. Discussed long insulin; onset/peak/duration. She was able to perform self demonstration of insulin injection. She was having difficulty removing the pen needle,
after several attempts was able to remove the needle with the safety cap. I encouraged Velia to administer his own injections with RN supervision while admitted. Discussed normal target glucose ranges and a monitoring preprandial in AM or at an
alternate time as recommended by MD.
Reviewed her current medications that she takes at home: Metformin and Glipizide. She takes Glipizide randomly in the afternoon. States she does not eat breakfast, typically eats cereal for lunch. Educated her on mechanism of action for both
medications and that Glipizide should be taken 30 minutes prior to first me of the day, if taken without food will cause glucose levels to fall. She verbalized understanding.
She expressed concern about her left eye; she has blurry vision, redness, pruritis and states it is 'crusty'. I discussed with nurse who will inform MD.
Encouraged patient to follow up with her PCP for post d/c appointment and to monitor medication and blood glucose levels, encouraged her to discuss CGM use and prescription with MD. Provided list of endocrinologists if desired, to contact
insurance company to verify in network status. Requested prescription sent to pharmacy for test strips and lancets for back up SMBG. Patient verbalized understanding.
[2025-02-04 12:09] LABS: Glucose - Point of Care 220 mg/dl (70-99)
[2025-02-04] MEDS: NOVOLOG FLEXPEN-MODERATE RESISTANCE 3 UNITS SC ×2 (12:39→17:06)
[2025-02-04] MEDS: TOBREX 0.3% EYE DROPS 1 DROP OPHTH ×2 (15:06→20:23)
[2025-02-04 15:23] VITALS: BP 143/66
[2025-02-04 16:42] LABS: Glucose - Point of Care 246 mg/dl (70-99)
[2025-02-04] MEDS: LOVENOX 40 MG SC (17:08)
[2025-02-04 21:25] LABS: Glucose - Point of Care 212 mg/dl (70-99)
[2025-02-04] MEDS: TYLENOL 325 MG PO (21:56)
[2025-02-04] MEDS: LIPITOR 10 MG PO (21:56)
[2025-02-04 23:11] VITALS: BP 147/76
[2025-02-04] MEDS: TOBREX 0.3% EYE DROPS OPHTH (23:54)
[2025-02-05] MEDS: TOBREX 0.3% EYE DROPS OPHTH (03:14)
[2025-02-05] MEDS: SYNTHROID 50 MCG PO (05:17)
[2025-02-05 06:00] VITALS: BMI 25.6
[2025-02-05 07:00] VITALS: BP 138/59
[2025-02-05 07:00] LABS: Glucose - Point of Care 133 mg/dl (70-99)
[2025-02-05] MEDS: NOVOLOG FLEXPEN-MODERATE RESISTANCE SC (07:45)
--- NOTE | 2025-02-05 07:50 | W.PN.HOSP.TC ---
Today's Communication/Plan
-
discharge
Assessment / Plan
Assessment / Plan
Physical Exam
General: no acute distress appears comfortable at this time
HEENT: NormoCephalic, Moist mucous membranes and Atraumatic
Respiratory: Clear
Cardiac: S1/S2 and Regular Rhythm; No Murmur or Rub
GI: Soft, Non Tender, Non Distended and Normal Bowel Sounds; No Organomegaly
Musculoskeletal: No Clubbing, No Cyanosis, No Edema, ulnar deviation fingers hands bilateral likely d/t rheumatoid arthritis
Skin: b/l LE red flaky skin
Neuro: AO x 3 Conversant coherent
Psych: Calm
84F HFpEF HTN DM Sz d/o depression here for fall at home, lives alone, significant ambulatory dysfunction, PT eval recommended SNF rehab. Patient also presenting with uncontrolled diabetes severe hyperglycemia without anion gap acidosis.
#ambulatory dysfunction/fall
-x ray with no acute fracture
-sacrum and coccyx with the impression of Severe multilevel lumbar discogenic degenerative disease. 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
spondylolysis).Grade 1 anterolistheses of L3 on L4 and L4 on L5 secondary to severe facet joint arthrosis. Mild right convex curvature of the lower lumbar spine.
-lumbar spine x ray with severe multilevel lumbar discogenic degenerative disease. 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
-CT pelvis appreciated no acute abn's
-CT head appreciated not acute abn's
-PT/OT consult appreciated SNF rehab
Lt Eye Conjunctivitis
-Tobramycin eye drops started
#leukocytosis likely stress reaction
resolved
#type 2 DM with hyperglycemia
-blood sugar elevated in 453 since significantly improved
-BHB mildly elevated
-no anion gap acidosis
-DM BENEFITS CONSULTANT eval appreciated, cont oral diabetic medications and insulin as per BENEFITS CONSULTANT
# History of seizure
- Keppra continued
# Depression
- Sertraline
# Hyperlipidemia
- Statin continued
Hypertension
- Norvasc, losartan continue with hold parameters
Hypothyroidism
- Stable. Continue current dose of T4 supplementation.
Rheumatoid Arthritis
outpt follow up recommended.
Coccyx stage 2 pressure injuries.
Bilateral buttocks stage 3 pressure injury.
Scattered dermal pink/scabbed abrasions Le's and R index finger suspect from patient picking her skin.
Heels blanchable red.
Abdominal fold with mild MASD.
-Wound care consult appreciated
-cont local wound care
DVT Prophylaxis: Lovenox
Code Status: DNR
Medically stable for discharge SNF rehab with outpatient follow up recommendations.
Total Time Preparing Discharge ___40____ minutes including examination of the patient, summary of the hospital stay, instructions for continuing care to all relevant caregivers; and preparation of discharge records, prescriptions, and referral
forms if necessary.
Anticipated Discharge: Today
Subjective/Interval History
-
Date of Service: February 05, 2025
No acute distress sitting up comfortably in bed. overall reports feeling well. Denies new acute issues. Looking forward to SNF rehab.
Objective Data
-
Vital Signs:
Vital Signs
Temp Pulse Resp BP Pulse Ox
98.3 F 79 16 147/76 96
02/04/25 23:11 02/04/25 23:11 02/04/25 23:11 02/04/25 23:11 02/04/25 23:11
I&O
02/04/25 02/05/25 02/06/25
06:59 06:59 06:59
Intake Total 1200 / 1200 960 / 960
Balance 1200 / 1200 960 / 960
--- NOTE | 2025-02-05 08:32 | PN.DE.MGMTRT ---
Insulin Management
- -
02/05/2025: Diabetes Management Follow up
84 year old female admitted s/p fall at home. PMH: CHF, HTN, Seizure disorder, ETOH abuse and T2DM.
Pt reports she does not adhere to any dietary restrictions and that her diet consists mainly of a high CHO concentrated diet (eats ice cream daily)
Was taking Glipizide 10mg QD and Metformin 500mg daily. She doesn't have a glucose monitor and doesn't test her blood sugars. A1C 15.5%, Cr 0.6, eGFR >60.
Discussed diabetes management options of MDI vs basal insulin combo with oral agents.
Pt states she will not be able to manage taking insulin 4 times a day. She is receptive to 1 insulin shot a day in combination with oral diabetes medications.
Pt awake, alert, oriented, sitting up @ edge of bed, offers no complaints, able to discuss diabetes management.
Was started on Lantus 15 units 02/03 due to Hyperglycemia, glucose improved but remains elevated, 220 to 246, HS was 212.
Pt states she is unable to perform glucose testing and administer insulin at [facility] due to severe arthritis in hands. States she has rubber gloves at home that helps her with tasks involving her hands but she is not sure if she will be able to
consistently monitor her blood sugars. Encouraged pt to continue taking her insulin and to monitor blood sugars at least twice a day at home. Pt would benefit from insulin patch use, however, there is currently no long acting insulin patch on the
market. Will add Januvia 100mg daily, 1st dose NOW. Increase Lantus to 25 units.
Cont Metformin 1000mg BID, Glipizide 10mg BID and moderate corrective insulin with meals.
Pt was seen by Diabetes Nurse Educator for monitor and insulin instructions, .
Diabetes History
- -
Type of Diabetes: 2 requiring insulin
Pre-Admission Diabetes Regimen
Lab Results
Hemoglobin A1c 15.5 % (4.0-5.6) H 02/03/25 06:11
Insulin Pump Settings
IP Diabetes Regimen
02/04/25 02/04/25 02/04/25
12:07 16:40 21:24
POC Glucose 220 H 246 H 212 H
02/05/25
06:58
POC Glucose 133 H
Patient Education
[2025-02-05] MEDS: DESENEX/MITRAZOL/ZEASORB 1 APPLIC TOPICAL (09:09)
[2025-02-05] MEDS: COZAAR 50 MG PO (09:09)
[2025-02-05] MEDS: GLUCOPHAGE 1000 MG PO (09:10)
[2025-02-05] MEDS: GLUCOTROL 10 MG PO (09:10)
[2025-02-05] MEDS: KEPPRA 500 MG PO (09:10)
[2025-02-05] MEDS: TOBREX 0.3% EYE DROPS 1 DROP OPHTH ×3 (09:10→15:37)
[2025-02-05] MEDS: NORVASC 2.5 MG PO (09:10)
[2025-02-05] MEDS: LANTUS SC (09:11)
[2025-02-05] MEDS: ZOLOFT 50 MG PO (09:11)
[2025-02-05] MEDS: LANTUS 0.25 UNITS SC (09:14)
[2025-02-05 12:02] LABS: Glucose - Point of Care 174 mg/dl (70-99)
--- NOTE | 2025-02-05 12:20 | CM ---
Addendum entered by Lulú Kesy 02/05/25 15:29:
Patient has been approved for 5 days NRD 02/09/25, to [phone] [facility] [phone], cost of w/c transport to [facility] is $90, patient aware.
[facility]
Report [phone]

Original Note:
Plan is for skilled placement at [facility] today, will need Auth
Plan; Skilled placement at [facility].
[2025-02-05] MEDS: NOVOLOG FLEXPEN-MODERATE RESISTANCE 1 UNITS SC (12:43)
[2025-02-05] MEDS: JANUVIA 100 MG PO (12:47)
[2025-02-05 15:00] VITALS: BP 158/76
--- NOTE | 2025-02-05 16:00 | W.DCSUMMARY ---
Discharge Summary
Discharge Data
Date of Admission: 02/02/25
Date of Discharge: 02/05/25
-
Pending Results: No
Discharge Plan
-
Patient Disposition: Alf/SNF
Discharge Diagnosis/Procedures: ambulatory dysfunction/fall
Lt Eye Conjunctivitis
Uncontrolled Diabetes
History of seizure
Depression
Hyperlipidemia
Hypertension
Hypothyroidism
Coccyx stage 2 pressure injuries.
Bilateral buttocks stage 3 pressure injury
Severe multilevel lumbar discogenic degenerative disease
Rheumatoid Arthritis
Condition: Fair
Diet: Diabetic, Carb Controlled
Activity: With assistance, As tolerated and With Walker
Driving Restrictions: Not until seen by your Dr
Bathing Restrictions: None
Blood Work: Repeat A1c with primary care provider in 3 months of discharge to follow up Diabetes A1c 15.5
Other Services: PT and OT
Activity Restrictions/Additional Instructions:
Wound Care Instructions
Coccyx ulcers-clean with saline or soap and water, silicone border foam, change daily and prn loosened dressing.
Bilateral buttocks ulcers-clean with saline, honey gel, alginate silicone border foam, change daily and prn loosened dressing.
Miconazole powder to abdominal folds, affected areas bid.
Air mattress.
Turning schedule
Elevate heels off bed with pillows.
Pressure redistributing chair cushion (i.e. air or gel chair cushion).
Follow up at wound care center call for an appointment.
Follow up with primary care provider in 1 week of discharge. Follow up Endocrinology and Rheumatology in 2-4 weeks of discharge.
Lantus, increased metformin, increased glipizide, and Januvia have been prescribed for better control diabetes.
Tobramycin eye drops have been prescribed for left eye conjunctivitis for 3 more days (02/08/25 last day).
Please take medications as prescribed/recommended and follow up with primary care provider and/or other healthcare provider for refills and/or further adjustment to your medication regimen as necessary.
Referrals:
Lida Matthew MD [Consulting Staff] - in two to four weeks
Jack Santa MD [Family Provider] - in one week
Henri Ron MD [Active] - in two to four weeks
Prescriptions:
New
miconazole nitrate [Miconazorb AF] 2 % Powder
1 applic topical BID Qty: 85 0RF
metformin 1,000 mg Tablet
1,000 mg PO BID@0800,1700 Qty: 60 0RF
Rx Instructions:
Hold if not eating
tobramycin 0.3 % Drops
1 drp ophthalmic (eye) Q4HWA 3 Days Qty: 5 0RF
Rx Instructions:
Left eye. February 08, 2025 last day
acetaminophen 325 mg Tablet
650 mg PO Q4HPRN PRN (Reason: mild pain/PINEDA/temp> 100.4F) Qty: 90 0RF
Januvia 100 mg Tablet
100 mg PO DAILY Qty: 30 0RF
Rx Instructions:
Hold if not eating
insulin glargine [Lantus Solostar U-100 Insulin] 100 unit/mL (3 mL) insulin pen
25 unit SC DAILY Qty: 15 0RF
Rx Instructions:
Reduce dose to half (12 Units) if not eating
Continued
losartan 50 MG tablet
50 mg PO DAILY
levetiracetam 500 MG tablet
500 mg PO DAILY
amlodipine 2.5 MG tablet
2.5 mg PO DAILY
levothyroxine 50 MCG tablet
50 mcg PO DAILY
simvastatin 20 MG tablet
20 mg PO HS
acetaminophen 325 MG tablet
325 mg PO HS
sertraline 50 mg Tablet
50 mg PO DAILY
Changed
glipizide 10 mg Tablet
10 mg PO BID@0800,1700 Qty: 0 0RF
Rx Instructions:
Hold if not eating.
Discontinued
metformin 500 MG tablet extended release 24 hr
500 mg PO DAILY 30 Days Qty: 30 3RF
Discharge Orders:
Discharge Patient (As Directed); Ordered 02/05/25
Ordered By: German Daugherty
Discharge Date and Time
Print Language: MONTSERRATIAN
[2025-02-05 16:11] LABS: Glucose - Point of Care 107 mg/dl (70-99)
== END 2025-02-05 16:36 ==
LOC: 4 WEST ACU 17:05
PROVIDERS: Physician Assistant; Registered Nurse; ADMITTING PHYSICIAN Internal Medicine; ATTENDING PHYSICIAN Internal Medicine; EMERGENCY PHYSICIAN Emergency Medicine; FAMILY PHYSICIAN Family Medicine
DX: M16.0 Bilateral primary osteoarthritis of hip (principal); M54.50 Low back pain, unspecified; M51.369 Other intervertebral disc degeneration, lumbar region without mention of lumbar back pain or lower extremity pain; M47.816 Spondylosis without myelopathy or radiculopathy, lumbar region; W19.XXXA Unspecified fall, initial encounter; E11.65 Type 2 diabetes mellitus with hyperglycemia; E03.9 Hypothyroidism, unspecified; F32.A Depression, unspecified; Z66 Do not resuscitate; M06.9 Rheumatoid arthritis, unspecified; E78.00 Pure hypercholesterolemia, unspecified; I11.0 Hypertensive heart disease with heart failure; Z82.49 Family history of ischemic heart disease and other diseases of the circulatory system; L89.152 Pressure ulcer of sacral region, stage 2; L89.323 Pressure ulcer of left buttock, stage 3; L89.313 Pressure ulcer of right buttock, stage 3
CPT/HCPCS: 70450; 72100; 72192; 72220; 80048; 80053; 81003; 81015; 82010; 82077; 82962; 83036; 84443; 85025; 85027; 87086; 96372; 97110; 97116; 97129; 97167; 97530; 97535; 99285; G0378

== ENCOUNTER → 2025-02-08 12:18 | Outpatient (REF) | payer OTHER, SELFPAY ==
[2025-02-08 13:21] LABS: Blood Urea Nitrogen 25 mg/dl (7-17); Calcium 9.5 mg/dl (8.4-10.2); Carbon Dioxide 28 mmol/L (22-30); Chloride 106 mmol/L (98-107); Glucose 70 mg/dl (70-99); Potassium 4.3 mmol/L (3.5-5.1); Sodium 140 mmol/L (135-145); eGFR > 60.00
[2025-02-08 13:33] LABS: % Basophils 0.5 % (0-2); % Eosinophils 4.6 % (0-6); % Immature Granulocytes 0.2 % (0-0.5); % Lymphocytes 26.3 % (20.5-51.1); % Monocytes 13.7 % (1.7-9.3); % Neutrophils 54.7 % (42.2-75.2); Absolute Eosinophils 0.4 10^3/uL (0-0.7); Absolute Lymphocytes 2.2 10^3/uL (1.2-3.4); Absolute Monocytes 1.1 10^3/uL (0.1-0.6); Absolute Neutrophils 4.5 10^3/uL (1.4-6.5); Hematocrit 37.9 % (37.0-47.0); Hemoglobin 12.3 g/dL (12.0-16.0); Mean Corp Hgb Conc. 32.5 g/dL (33.0-37.0); Mean Corpuscular Hgb 29.5 pg (27.0-31.0); Mean Corpuscular Volume 90.9 fL (81.0-99.0); Mean Platelet Volume 10.8 fL (7.4-10.4); Nucleated Red Blood Cells % 0 %; Platelet Count 251 10^3/uL (130-400); Red Blood Cell Count 4.17 10^6/uL (4.20-5.40); Red Cell Dist. Width 13.2 % (11.5-14.5); White Blood Cell Count 8.2 10^3/uL (4.8-10.8)
== END ==
LOC: OLABP 12:18
PROVIDERS: ATTENDING PHYSICIAN Family Medicine
DX: M62.59 Muscle wasting and atrophy, not elsewhere classified, multiple sites (principal); E11.65 Type 2 diabetes mellitus with hyperglycemia; I50.32 Chronic diastolic (congestive) heart failure; I10 Essential (primary) hypertension; G40.89 Other seizures; E03.9 Hypothyroidism, unspecified; E78.5 Hyperlipidemia, unspecified; D72.829 Elevated white blood cell count, unspecified; L89.313 Pressure ulcer of right buttock, stage 3; L89.323 Pressure ulcer of left buttock, stage 3; L89.152 Pressure ulcer of sacral region, stage 2
CPT/HCPCS: 36415; 80048; 85025

== ENCOUNTER → 2025-02-15 11:19 | Outpatient (REF) | payer OTHER, SELFPAY ==
[2025-02-15 12:34] LABS: Blood Urea Nitrogen 14 mg/dl (7-17); Calcium 9.4 mg/dl (8.4-10.2); Glucose 163 mg/dl (70-99); eGFR > 60.00
[2025-02-15 12:45] LABS: Carbon Dioxide 26 mmol/L (22-30); Chloride 102 mmol/L (98-107); Potassium 4.3 mmol/L (3.5-5.1); Sodium 139 mmol/L (135-145)
== END ==
LOC: OLABP 11:19
PROVIDERS: ATTENDING PHYSICIAN Family Medicine
DX: M62.59 Muscle wasting and atrophy, not elsewhere classified, multiple sites (principal); I50.32 Chronic diastolic (congestive) heart failure; I10 Essential (primary) hypertension; G40.89 Other seizures; E03.9 Hypothyroidism, unspecified; E78.5 Hyperlipidemia, unspecified; D72.829 Elevated white blood cell count, unspecified; L89.323 Pressure ulcer of left buttock, stage 3; L89.152 Pressure ulcer of sacral region, stage 2
CPT/HCPCS: 36415; 80048

== ENCOUNTER 2025-10-01 07:53 | Inpatient (IN) | payer OTHER, SELFPAY ==
[2025-09-26] VITALS (8 sets, daily range): BP systolic 121–172; BP diastolic 51–97; BMI 31.9; BMI 30.6
[2025-09-26 11:56] LABS: Urine Character Clear (Clear)
[2025-09-26 12:07] LABS: Urine Red Blood Cell 60-70 /HPF (0-2)
--- NOTE | 2025-09-26 13:19 | ED.GENMED ---
History of Present Illness
<Galindo Braga PA-C - Last Filed: 09/26/25 16:42>
General
Chief Complaint: Fall
Time Seen by Provider: 09/26/25 11:31
History of Present Illness
History of Present Illness:
85-year-old female with history of hypertension, hyperlipidemia, [id number] diabetes presents to the emergency department for evaluation of multiple injuries after a ground-level fall. She lost her balance and fell striking her head on a
bathroom vanity in her right knee on the ground. No reported LOC. She is unable to bear weight on the right lower extremity.
Past History
<Galindo Braga PA-C - Last Filed: 09/26/25 16:42>
Past History
ED Past Medical History: CHF, GERD, HTN, Hypercholesterolemia, Seizures and Other (Rheumatoid arthritis, psoriasis); Negative CAD or IDDM
ED Past Surgical History: Gynecological and Orthopedic
Social History
Tobacco: Non-smoker
Alcohol: Chronic alcoholic
Drug: None
Personal:
Living: with family
Employment: Employed
Family History
Family History: Hypertension
Review of Systems
<Galindo Braga PA-C - Last Filed: 09/26/25 16:42>
Review of Systems
Allergies reviewed?: Yes
All Other Systems: ROS reviewed and negative except as documented in HPI and ROS
Phy Exam
<Galindo Braga PA-C - Last Filed: 09/26/25 16:42>
Physical Exam
Physical Exam:
GEN: Well appearing, NAD, WDWN
HEENT: Normocephalic, minor abrasion to the vertex of the parietal scalp on the left side oral mucosa moist, no scleral icterus. No midline C/T/L-spine tenderness
Cardiac: Regular rate
Lung: No respiratory distress, no tachypnea
MSK: Significant swelling of the right knee with ecchymosis, no gross deformity, pelvis stable with no crepitus
Skin: Good color, no pallor or jaundice, no rashes
Neuro: AO x3, moves all extremities freely
Psych: Calm, cooperative
Course
<Galindo Braga PA-C - Last Filed: 09/26/25 16:42>
Orders/Labs/Results
Orders:
Orders
09/26/25 09:40
CT Head W/o Iv Contrast Urgent
Comment:
Reason For Exam: fall in the bathroom
CR Knee- Right 4 Or More View* Urgent
Comment:
Reason For Exam: fall in the bathroom
Tibia/Fibula, Left 2 View [CR Leg Tibia/fibula Left 2 Vw] Urgent
Comment:
Reason For Exam: fall in the bathroom
09/26/25 11:26
Urinalysis Reflex To Culture Urgent
Date Specimen was Collected: 09/26/25
Time Specimen was Collected: 11:17
Urine Microscopic Reflex Cult Urgent
09/26/25 12:46
CT Abd/Pel (IV only)-DH only Urgent
Comment:
Reason For Exam: fall, hematuria
CT Lower Ext W/o Iv Cont Rt Urgent
Comment:
Reason For Exam: R knee injury/ neg xr
09/26/25 13:55
Complete Blood Count/No Diff Urgent
Comprehensive Metabolic Panel Urgent
09/26/25 15:28
Acetaminophen [Tylenol] 650 mg PO NOW STA
Ibuprofen [Motrin] 400 mg PO NOW STA
09/26/25 17:18
Admit/Transfer Patient As Directed
Co-Sign Provider:
Level of Care: Observation services
Assign to:: Medical/Surgical
Physician / Group: Lele Krishnan
Diagnosis: ambulatory dysfunction
PRN Pain Medication Management As Directed
May give lesser potent ordered pain med per pt: Yes
preference::
Protocol:: Medication orders for pain may be administered in a
manner that supports deferring to patient preference
when the pt is:
- Requesting an ordered lesser potent pain medication.
Least to most potent pain medications are defined
as: acetaminophen < NSAID < tramadol < opioids
(morphine, oxycodone, hydromorphone).
- Requesting a lesser dose of the same medication IF
ORDERED.
- Requesting a less intrusive route of administration
if both routes are prescribed by the provider (PO <
IV).
09/26/25 17:19
Code Status As Directed
Resuscitation Status: Full Code
Abnormal Lab Results
09/26/25 09/26/25
11:26 13:55
WBC 13.8 H 10^3/uL
(4.8-10.8)
Hct 35.6 L %
(37.0-47.0)
Sodium 133 L mmol/L
(135-145)
Glucose 246 H mg/dl
(70-99)
Ur Occult Blood Reflex 4+ A
(Negative)
Urine RBC 60-70 A /HPF
(0-2)
Urine Bacteria (Reflex) Few A
(Negative)
Urine Glucose 3+ A
(Negative)
Urine Albumin (Reflex) 4+ A
(Neg - Trace)
09/26/25 13:55
09/26/25 13:55
Vital Signs
Initial and Last Documented VS:
Initial Vital Signs
Temp Pulse Resp BP Pulse Ox
98.8 F 89 18 165/77 99
09/26/25 09:38 09/26/25 09:38 09/26/25 09:38 09/26/25 09:38 09/26/25 09:38
Last Documented Vital Signs
Temp Pulse Resp BP Pulse Ox
98.8 F 76 16 151/60 94
09/26/25 09:38 09/26/25 16:37 09/26/25 16:37 09/26/25 16:37 09/26/25 16:37
<Haleykimberley Paul, DO - Last Filed: 09/26/25 18:00>
Orders/Labs/Results
Orders:
Orders
09/26/25 09:40
CT Head W/o Iv Contrast Urgent
Comment:
Reason For Exam: fall in the bathroom
CR Knee- Right 4 Or More View* Urgent
Comment:
Reason For Exam: fall in the bathroom
Tibia/Fibula, Left 2 View [CR Leg Tibia/fibula Left 2 Vw] Urgent
Comment:
Reason For Exam: fall in the bathroom
09/26/25 11:26
Urinalysis Reflex To Culture Urgent
Date Specimen was Collected: 09/26/25
Time Specimen was Collected: 11:17
Urine Microscopic Reflex Cult Urgent
09/26/25 12:46
CT Abd/Pel (IV only)-DH only Urgent
Comment:
Reason For Exam: fall, hematuria
CT Lower Ext W/o Iv Cont Rt Urgent
Comment:
Reason For Exam: R knee injury/ neg xr
09/26/25 13:55
Complete Blood Count/No Diff Urgent
Comprehensive Metabolic Panel Urgent
09/26/25 15:28
Acetaminophen [Tylenol] 650 mg PO NOW STA
Ibuprofen [Motrin] 400 mg PO NOW STA
09/26/25 17:18
Admit/Transfer Patient As Directed
Co-Sign Provider:
Level of Care: Observation services
Assign to:: Medical/Surgical
Physician / Group: Lele Krishnan
Diagnosis: ambulatory dysfunction
PRN Pain Medication Management As Directed
May give lesser potent ordered pain med per pt: Yes
preference::
Protocol:: Medication orders for pain may be administered in a
manner that supports deferring to patient preference
when the pt is:
- Requesting an ordered lesser potent pain medication.
Least to most potent pain medications are defined
as: acetaminophen < NSAID < tramadol < opioids
(morphine, oxycodone, hydromorphone).
- Requesting a lesser dose of the same medication IF
ORDERED.
- Requesting a less intrusive route of administration
if both routes are prescribed by the provider (PO <
IV).
09/26/25 17:19
Code Status As Directed
Resuscitation Status: Full Code
Abnormal Lab Results
09/26/25 09/26/25
11: 13:55
WBC 13.8 H 10^3/uL
(4.8-10.8)
Hct 35.6 L %
(37.0-47.0)
Sodium 133 L mmol/L
(135-145)
Glucose 246 H mg/dl
(70-99)
Ur Occult Blood Reflex 4+ A
(Negative)
Urine RBC 60-70 A /HPF
(0-2)
Urine Bacteria (Reflex) Few A
(Negative)
Urine Glucose 3+ A
(Negative)
Urine Albumin (Reflex) 4+ A
(Neg - Trace)
09/26/25 13:55
09/26/25 13:55
Vital Signs
Initial and Last Documented VS:
Initial Vital Signs
Temp Pulse Resp BP Pulse Ox
98.8 F 89 18 165/77 99
09/26/25 09:38 09/26/25 09:38 09/26/25 09:38 09/26/25 09:38 09/26/25 09:38
Last Documented Vital Signs
Temp Pulse Resp BP Pulse Ox
98.8 F 76 16 151/60 94
09/26/25 09:38 09/26/25 16:37 09/26/25 16:37 09/26/25 16:37 09/26/25 16:37
<Galindo Braga PA-C - Last Filed: 09/26/25 16:42>
MDM/Problems Addressed
MDM/Problems Addressed:
Imaging without acute traumatic abnormalities. Uncertain etiology of the patient's microscopic hematuria although no sign of renal or pelvic floor injury is identified. She is unable to ambulate steadily despite analgesics due to significant right
knee contusion and thus will require admission for observation and further PT/OT considerations
<Galindo Braga PA-C - Last Filed: 09/26/25 16:42>
*Pulse Oximetry
SaO2: 99
Oxygen Mode of Delivery: Room air
Patient hypoxic: no
*Critical Care Note
Total Time (30-74mins, 75-104mins- exclusive of procedures): Not Applicable
ED Attending Note
<Galindo Braga PA-C - Last Filed: 09/26/25 16:42>
-
Portions of this chart may have been created with voice recognition software.� Occasional wrong word or��sound alike� substitutions may have occurred due to the inherent limitations of voice recognition software.
<Haley Paul DO - Last Filed: 09/26/25 18:00>
ED Attending Note
Patient seen and examined by attending physician: Yes
I performed the substantive portion of visit, reviewed & personally made and approve the management plan that is documented in note by myself or FERNANDO.: Yes
I performed a history and physical exam of patient and discussed management with resident, I reviewed resident's note and agree with documented findings and plan of care.: Yes
ED Attending Note:
85-year-old female with history of hypertension, diabetes, hyperlipidemia presenting to the emergency department after a fall. Patient notes she tripped in the bathroom, injuring her right knee, also with head strike. Has been unable to bear
weight since the fall. Denies numbness or tingling to her right lower extremity. Denies chest pain, difficulty breathing or prodromal symptoms. Denies any syncope. Denies any chest pain or abdominal pain. Vital signs stable in the emergency
department.
On exam, patient resting comfortably, no acute distress. Primary injury at this time is her right knee with some mild swelling with suspicion for effusion. Limited range of motion secondary to pain. No erythema or warmth. Distal sensation
intact. No signs of head injury or trauma. Patient initially seen and evaluated by physician assistant family teacher. Negative CT imaging of the brain. Patient had a urinalysis checked incidentally showing RBCs. For this reason this did prompt imaging of the
abdomen and pelvis, unremarkable. Imaging completed of the right lower extremity which does show arthritic findings, small joint effusion. Otherwise no fracture. CT of the abdomen pelvis does show some incidental finding of small pleural
effusions and small to moderate pericardial effusion. No present respiratory or cardiac symptoms. Attempted ambulate patient, unsuccessful secondary to her pain. For this reason admitting for pain control and PT/OT consultation, possible
placement for rehab
Discharge Plan
Departure
Patient Disposition: Admit
Date of Disposition: 09/26/25
Time of Disposition: 16:42
Admit to: Med/Surg
Presentation/result/management discussed w/ accepting MD/DO: Hospitalist
Discharge Problem:
Contusion of knee, right, Ambulatory dysfunction
Prescriptions:
No Action
losartan 50 MG tablet
50 mg PO DAILY
levetiracetam 500 MG tablet
500 mg PO DAILY
amlodipine 2.5 MG tablet
2.5 mg PO DAILY
levothyroxine 50 MCG tablet
50 mcg PO DAILY
simvastatin 20 MG tablet
20 mg PO HS
acetaminophen 325 MG tablet
325 mg PO HS
sertraline 50 mg Tablet
50 mg PO DAILY
miconazole nitrate [Miconazorb AF] 2 % Powder
1 applic topical BID Qty: 85 0RF
tobramycin 0.3 % Drops
1 drp ophthalmic (eye) Q4HWA 3 Days Qty: 5 0RF
Rx Instructions:
Left eye. February 08, 2025 last day
acetaminophen 325 mg Tablet
650 mg PO Q4HPRN PRN (Reason: mild pain/PINEDA/temp> 100.4F) Qty: 90 0RF
Januvia 100 mg Tablet
100 mg PO DAILY Qty: 30 0RF
Rx Instructions:
Hold if not eating
glipizide 10 mg tablet
10 mg PO DAILY
Rx Instructions:
Hold if not eating.
metformin 1,000 mg tablet
500 mg PO BID@0800,1700
Rx Instructions:
Hold if not eating
Referrals:
Jack Santa MD [Family Provider, Family Practice]
Interventions
Interventions:
*General Assessment Last Done: 09/26/25 09:40
*Neglect/Abuse Screening Last Done: 09/26/25 09:40
*ED COVID-19 Vaccine History Last Done: 09/26/25 09:40
*ED Influenza Vaccine History Last Done: 09/26/25 09:40
[facility] Fall Risk Assessment Tool Last Done: 09/26/25 13:11
*Risk Screen - Suicide (C-SSRS) Last Done: 09/26/25 09:40
ED-Musculoskeletal Assessment Last Done: 09/26/25 13:11
ED- Neurological Assessment Last Done: 09/26/25 13:11
ED-Skin Assessment Last Done: 09/26/25 13:11
Discharge Date and Time
Print Language: IRISH
[2025-09-26 14:04] LABS: Hematocrit 35.6 % (37.0-47.0); Hemoglobin 12.2 g/dL (12.0-16.0); Mean Corp Hgb Conc. 34.3 g/dL (33.0-37.0); Mean Corpuscular Volume 84.6 fL (81.0-99.0); Platelet Count 232 10^3/uL (130-400); Red Cell Dist. Width 13.7 % (11.5-14.5)
[2025-09-26 14:14] LABS: ALT (SGPT) 11 U/L (0-35); AST (SGOT) 19 U/L (14-36); Albumin 3.7 g/dl (3.5-5.0); Alkaline Phosphatase 72 U/L (38-126); Blood Urea Nitrogen 16 mg/dl (7-17); Calcium 9.5 mg/dl (8.4-10.2); Carbon Dioxide 28 mmol/L (22-30); Chloride 103 mmol/L (98-107); Estimated Creatinine Clearance 47 ml/min; Glucose 246 mg/dl (70-99); Potassium 4.3 mmol/L (3.5-5.1); Sodium 133 mmol/L (135-145); Total Protein 7.0 g/dl (6.3-8.2); eGFR > 60.00
[2025-09-26] MEDS: MOTRIN 400 MG PO (15:40)
[2025-09-26] MEDS: TYLENOL 650 MG PO (15:40)
--- NOTE | 2025-09-26 16:24 | EDRN ---
Pt ambulated w/ max support of 2 w/ walker. Lost balance x2 almost falling and lot of R knee pain. Pt to slot editor that if they were not with her she definitely would have fallen. Will TT info to Hadley PAREKH at this time.
--- NOTE | 2025-09-26 16:29 | EDRN ---
Hadley Braga PA in room w/ pt. He said pt will be admitted.
--- NOTE | 2025-09-26 16:44 | HPS.HSE ---
Family Physician
-
Family Physician: Jack Santa
Chief Complaint
-
fall
History of Present Illness
Patient is a 85-year-old female with past medical history significant for essential hypertension, hypothyroidism, type 2 diabetes, seizure disorder, depression, psoriasis, HFpEF and Rheumatoid arthritis who presented to [facility] ED for evaluation post
fall at home. Patient reports falling in the bathroom at home this morning. Does note there was a head strike. She explains that she lost her balance and this resulted in her fall. She denies any LOC. She notes pain to right lower extremity. Denies
fever, chills, cough, shortness of breath, chest pain, palpitations, nausea, vomiting, constiaption, diarrhea or urinary symptoms.
Medical History
Past Medical History
Past Medical History: Reports Other
Additional Past Medical History:
essential hypertension
hypothyroidism
type 2 diabetes
seizure disorder
depression
psoriasis
HFpEF
Rheumatoid arthritis
Hx DCIS breast cancer
Past Surgical History: Reports Other
Additional Past Surgical History:
Right breast lumpectomy
bilateral tubal ligation
Social History
Tobacco: Former Smoker
Alcohol: None
Drug: None
Personal: Single
Living: Alone
Employment: Retired
Family History
Family History: Not pertinent
Allergies / Home Medications
Allergies reflects when Allergies were last updated in [facility].
Home Medications with original date entered in [facility]
Allergy/Medication List:
Allergies
Allergy/AdvReac Type Severity Reaction Status Date / Time
latex (Latex) Allergy Itching Verified 09/26/25 09:39
Home Medications
amlodipine 2.5 mg tablet 2.5 mg PO DAILY Blood pressure 07/12/16
levetiracetam 500 mg tablet 500 mg PO DAILY Seizures 07/12/16
levothyroxine 50 mcg tablet 50 mcg PO DAILY Thyroid 07/12/16
losartan 50 mg tablet 50 mg PO DAILY Blood pressure 07/12/16
simvastatin 20 mg tablet 20 mg PO HS High cholesterol 07/12/16
acetaminophen 325 mg tablet 325 mg PO HS Pain 12/27/16
sertraline 50 mg tablet 50 mg PO DAILY Depression 02/02/25
acetaminophen 325 mg tablet 650 mg (2 x 325 mg) PO Q4HPRN PRN mild pain/PINEDA/temp> 100.4F #90 tabs 02/05/25
miconazole nitrate 2 % topical powder (Miconazorb AF) 1 applic topical BID #85 grams 02/05/25
sitagliptin phosphate 100 mg tablet (Januvia) 100 mg PO DAILY #30 tabs 02/05/25
tobramycin 0.3 % eye drops 1 drp ophthalmic (eye) Q4HWA 3 days #5 mL 02/05/25
glipizide 10 mg tablet 10 mg PO DAILY Diabetes 09/26/25
metformin 1,000 mg tablet 500 mg PO BID@0800,1700 09/26/25
Review of Systems
-
History Source: Patient
Constitutional: Denies Fever or Chills
EENT: Denies Sore Throat
Respiratory: Denies Cough or Trouble Breathing
Cardiac: Denies Chest Pain, Diaphoresis, Palpitations or Syncope
Abdomen/GI: Denies Abdominal Pain, Nausea, Vomiting or Diarrhea
: Denies Dysuria, Frequency or Urgency
Musculoskeletal: Reports Joint Pain (right knee ), Joint Swelling (right knee ) and Other (discomfort to right lower extremity )
Skin: Denies Rash
Neurological: Denies Dizzy, Headache, Weakness or Numbness
Physical Exam
Vital Signs
Vital Signs
Temp Pulse Resp BP Pulse Ox
98.8 F 76 16 151/60 94
09/26/25 09:38 09/26/25 16:37 09/26/25 16:37 09/26/25 16:37 09/26/25 16:37
Physical Exam
General: Well Developed, Well Nourished, No Apparent Distress, Comfortable and Conversant
HEENT: NormoCephalic, Moist mucous membranes, PERRLA, Nose Appears Normal, Ears Appear Normal and Other (abrasion to the vertex of the parietal scalp on the left side)
Respiratory: Clear and Non Labored Respirations
Cardiac: Regular Rhythm and Murmur
GI: Soft, Non Tender, Non Distended and Normal Bowel Sounds
Musculoskeletal: No Clubbing, No Cyanosis and Other (right knee edema )
Skin: Warm and IV/Catheter Site
Neuro: Awake and AO x 3
Psych: Calm
Laboratory Results
-
09/26/25 13:55
09/26/25 13:55
Laboratory Results
Total Bilirubin 0.6 mg/dl (0.2-1.3) 09/26/25 13:55
AST 19 U/L (14-36) 09/26/25 13:55
ALT 11 U/L (0-35) 09/26/25 13:55
Alkaline Phosphatase 72 U/L (38-126) 09/26/25 13:55
Data Reviewed
-
Diagnostic Radiology: Report Reviewed by me (RLE: No radiographic evidence for an acute osseous abnormality of the right knee or the left tibia and fibula. Chronic findings, as detailed above.)
CT Scan: Report Reviewed by me (Head: No acute intracranial abnormality.; Abd/Pel: No CT evidence for an acute process in the abdomen or pelvis. Cholelithiasis. Small bilateral pleural effusions. Small to moderate pericardial effusion.; RLE: No
CT evidence for an acute fracture or dislocation. Severe joint space narrowing of t)
Lab Data: Labs Reviewed by me (WBC 13.8, Na 133)
Impression/Plan
-
IMPRESSION/PLAN:
#ambulatory dysfunction
lost her balance and this resulted in her fall with head strike and discomfort/edema to RLE
previous fall history
WBC 13.8, Na 133
RLE x-ray: No radiographic evidence for an acute osseous abnormality of the right knee or the left tibia and fibula.
Chronic findings, as detailed above.
Head CT: No acute intracranial abnormality.
Abd/Pel CT: No CT evidence for an acute process in the abdomen or pelvis.
Cholelithiasis.
Small bilateral pleural effusions.
Small to moderate pericardial effusion.
Right LE CT: No CT evidence for an acute fracture or dislocation.
Severe joint space narrowing of the medial tibiofemoral compartment with subchondral sclerosis and subchondral cysts. Mild to moderate patellofemoral joint space narrowing. Bulky
tricompartmental marginal osteophytes. Small to moderate knee joint effusion. Small Alejandre's cyst containing multiple calcified bodies. Small calcified body also noted in the suprapatellar
recess. Vascular calcifications.
- Admit to med/surg
- pain regimen
- Consult PT/OT
#essential hypertension
- continue amlodipine and losartan
#hypothyroidism
- continue levothyroxine
#type 2 diabetes
- AccuCheck AC & HS
- SSI
- hold metformin
- continue glipizide
#seizure disorder
- continue levetiracetam
#depression
- continue sertraline
#HFpEF
- daily weights
- I & Os
#psoriasis
#Rheumatoid arthritis
Code status: full code
DVT prophylaxis: Lovenox sq
--- NOTE | 2025-09-26 16:47 | W.PN.UPDATE ---
Update Note
Progress Note Update
This note serves as an addendum to the H&P by farmer diversified crops Zak Lopez
HPI�
84F HX RA, Falls and ambulatory dysfunction
PHX: HFpEF HTN DM Sz d/o depression
- seen at ER for evaluation of multiple injuries after a ground-level fall
- reports lost balance and fell
- reports striking head on a bathroom vanity and fell on right knee on the ground.
- No reported LOC.
- unable to bear weight on the right lower extremity.
PHX; see above
Relevant VS
Vital Signs
Temp Pulse Resp BP Pulse Ox
98.8 F 76 16 151/60 94
09/26/25 09:38 09/26/25 16:37 09/26/25 16:37 09/26/25 16:37 09/26/25 16:37
PE
Gen: Not toxic , Obese
HEENT: atraumatic
Neck: supple
Lungs: CTA
Cor: RRR S1 s2
Abdomen: benign
VALUE ANALYST: AAO3
MS: R t knee - mild bruise at Lt of the patella - slightly tender but Nl ROM
Psych: Nl mood and affect
Relevant Data
02/08/25 09/26/25
05:50 13:55
WBC 13.8 H
Hgb 12.3 12.2
09/26/25
13:55
Sodium 133 L
BUN 16
Creatinine 0.8
eGFR > 60.00
Glucose 246 H
06/30/21 02/03/25
Hemoglobin A1c 11.3 H 15.5 H
HCT:
No acute intracranial abnormality.
CT Rt Joesph W/o Iv Cont Rt
No CT evidence for an acute fracture or dislocation.
Severe joint space narrowing of the medial tibiofemoral compartment with subchondral sclerosis and subchondral cysts.
Mild to moderate patellofemoral joint space narrowing.
Bulky tricompartmental marginal osteophytes.
Small to moderate knee joint effusion.
Small Alejandre's cyst containing multiple calcified bodies.
Small calcified body also noted in the suprapatellar recess. Vascular calcifications.
CT AP IV contrast only
No CT evidence for an acute process in the abdomen or pelvis.
Cholelithiasis.
Small bilateral pleural effusions.
Small to moderate pericardial effusion.
R Knee XR
No radiographic evidence for an acute osseous abnormality of the right knee or the left tibia and fibula.
Chronic findings, as detailed above.
Last hospitalist admission: 02/02/25 - 02/05/25
Ambulatory dysfunction/fall
Lt Eye Conjunctivitis
Uncontrolled Diabetes
ASSESSMENT & PLAN
Pending Rx reconciliation
Acute non osseus R knee contusion in jury s/p fall
Associated acute gait dysfunction and unable to wt bear
Head strike - NEG HCT
HX Falls and admission
HX Chr gait dysfunction need walker
HX chr LBP
- NEG CT for osseus injury
- PRN analgesia
- PT/OT
Hyperglycemia
Uncontrol DM
Lat A1C was 15 in January 2025
HX DMT2
- hold metformin
- c/w Glipizide
- add ISS moderate scale
Essential Hypertension
Normal eGFR and Cr at baseline
- Stable.
- Continue PARTY DEMONSTRATOR amlodipine and Losartan
Hypothyroidism
- Stable.
- Continue current dose of T4 supplementation.
HLD
- on Simvastatin
Depression
- stable
- on sertraline
Remote HX Sz
- c/w PARTY DEMONSTRATOR Keppra
DVT Px:LMWH
Full code
OBS MS
[2025-09-26] MEDS: LIPITOR 10 MG PO (21:31)
[2025-09-26] MEDS: LOVENOX 40 MG SC (21:31)
[2025-09-26 21:36] LABS: Glucose - Point of Care 154 mg/dl (70-99)
[2025-09-27] MEDS: TYLENOL 650 MG PO ×3 (04:38→22:53)
[2025-09-27] MEDS: SYNTHROID 50 MCG PO (04:38)
[2025-09-27 06:00] VITALS: BMI 30.8
[2025-09-27 07:25] LABS: Glucose - Point of Care 139 mg/dl (70-99)
--- NOTE | 2025-09-27 07:29 | W.PN.HOSP.TC ---
Today's Communication/Plan
-
Echo for pericardial effusion
Pain management
PT/OT recs
Assessment / Plan
Assessment / Plan
85yoF PMH HTN, HLD, Hypothyroid, NIDDM, seizures, depression, psoriasis, HFpEF, rheumatoid arthritis presenting from mechanical fall at home HS+ LOC-.
AFVSS. Hg stable, elevated WBC 13.8 repeat 8.3. CMP WNL except elevated BG. UA demonstrated RBC, negative for UTI. Head CT without findings of acute abnormality. HS not on blood thinners. CT LE knee effusion and bakers cyst. CT abd/pelvis with
findings of small pleural effusions and pericardial effusion. Pt has ecchymoses of L leg and abrasions on all 4 extremities. Goal to manage pain and find placement to rebuild strength. Nonoperable deformities of limbs from fall.
#ambulatory dysfunction
- unknown cause of fall +HS
- Head CT, RLE xray, CT ab/pelvis, RLE CT without findings of acute injury
- pain control
- PT/OT
- IVF
#pericardial effusion
- incidental finding on CT
- Order Echo
#HTN
#hypothyroidism
#seizure disorder
#HFpEF
#RA
#psoriasis
- Chronic conditions stable
- Continue home medications
#T2DM
- SSI
- hold home metformin
- Continue glipizide
Code status: full code
DVT prophylaxis: Lovenox sq
Anticipated Discharge: Within 24 hours
Subjective/Interval History
-
Date of Service: September 27, 2025
Pt feeling better today. She reports inability to open her eyes easily since her fall. She states her last fall was >1 yr ago. She describes RLE pain at rest or her knee exacerbated with movement with intermittent sharp, shooting pains through her
leg.
Pt lives along and does not remember how or why she fell, describing it happened so fast. Denies fevers, chills, SOB, palpitations or prodrome to her fall. Deneis LOC, +HS. Hx L knee aspiration done for effusion; pt stated it was very painful and
she does not want that done again.
Objective Data
-
Vital Signs:
Vital Signs
Temp Pulse Resp BP Pulse Ox
97.6 F 73 16 128/56 95
09/26/25 23:27 09/26/25 23:27 09/26/25 23:27 09/26/25 23:27 09/26/25 23:27
I&O
09/26/25 09/27/25 09/28/25
06:59 06:59 06:59
Intake Total 80 / 80
Output Total 300 / 300
Balance -220 / -220
Review of Systems
-
History Source: Patient
All other systems: Reviewed and negative (unless listed in HPI)
Physical Exam
-
General: Well Developed, Well Nourished, No Apparent Distress and Comfortable
HEENT: Normocephalic, Atraumatic (tenderness to top of head, no ecchymoses or bumps appreciated) and Moist Mucous Membranes
Respiratory: Clear to Auscultation and Non Labored Respirations
Cardiac: Regular Rhythm and S1/S2
GI: Soft, Nontender and Nondistended
Musculoskeletal: Edema, Left Lower Extrem (ecchymoses and edema around knee, tender to palpation) and Other (abrasions on L hand, R and L ankles bandaged without erythema; RA nodules of bilateral hands)
Skin: Warm, Dry and Other (venous stasis discoloration of LE)
Neuro: AO x 3, No Motor Deficits, Central Nerve's Intact (difficult to open eyes when intially entered room; improved slightly by time leaving room) and No Sensory Deficits
Psych: Calm
[2025-09-27 07:35] VITALS: BP 133/54
[2025-09-27] MEDS: NOVOLOG FLEXPEN-MODERATE RESISTANCE SC ×3 (07:37→16:45)
[2025-09-27] MEDS: KEPPRA 500 MG PO (09:38)
[2025-09-27] MEDS: NORVASC 2.5 MG PO (09:38)
[2025-09-27] MEDS: GLUCOTROL 10 MG PO (09:38)
[2025-09-27] MEDS: COZAAR 50 MG PO (09:38)
[2025-09-27] MEDS: ZOLOFT 50 MG PO (09:38)
[2025-09-27] MEDS: DESENEX/MITRAZOL/ZEASORB 1 APPLIC TOPICAL ×2 (09:39→20:31)
[2025-09-27 09:47] LABS: Hematocrit 29.7 % (37.0-47.0); Hemoglobin 10.2 g/dL (12.0-16.0); Mean Corp Hgb Conc. 34.3 g/dL (33.0-37.0); Mean Corpuscular Volume 86.3 fL (81.0-99.0); Platelet Count 204 10^3/uL (130-400); Red Cell Dist. Width 13.8 % (11.5-14.5)
[2025-09-27 11:00] LABS: Blood Urea Nitrogen 20 mg/dl (7-17); Calcium 8.8 mg/dl (8.4-10.2); Carbon Dioxide 27 mmol/L (22-30); Chloride 104 mmol/L (98-107); Estimated Creatinine Clearance 34 ml/min; Glucose 112 mg/dl (70-99); Potassium 3.7 mmol/L (3.5-5.1); Sodium 134 mmol/L (135-145); eGFR 49.24
--- NOTE | 2025-09-27 11:41 | CM ---
Patient seen bedside, initial assessment completed. Patient is a 85-year-old female with past medical history significant for essential hypertension, hypothyroidism, type 2 diabetes, seizure disorder, depression, psoriasis, HFpEF and Rheumatoid
arthritis who presented to [facility] for evaluation post fall at home.
Patient resides alone in a 2STH, 2 steps to enter. Patient is independent w/ RW, patient has 3, a cane, and 2 stair glides. Independent w/ ADLs and personal care. Patient sleeps in a recliner. Patient was prev at [facility] following last admission in
February. VN following [facility] for a couple of weeks, patient doesn't recall the provider.
Address, point of contact and insurance verified
PCP: Jack Santa
Pharmacy: [facility]
Patient admitted under obs services. GUPTA form verbally reviewed, copy provided, copy on chart
PT/OT ordered, will review recommendations
Plan: Await PT/OT
[2025-09-27] MEDS: LR 1000 IV (11:50)
[2025-09-27 11:57] LABS: Glucose - Point of Care 164 mg/dl (70-99)
[2025-09-27] MEDS: ROXICODONE 2.5 MG PO ×2 (12:00→20:35)
[2025-09-27 12:36] LABS: Glycohemoglobin (HgbA1c) 11.0 % (4.0-5.9)
[2025-09-27 13:42] VITALS: BP 100/77; PULSE 78; O2SAT 93
[2025-09-27 15:20] VITALS: BP 115/49
[2025-09-27 16:44] LABS: Glucose - Point of Care 124 mg/dl (70-99)
[2025-09-27] MEDS: LOVENOX 40 MG SC (17:27)
--- NOTE | 2025-09-27 18:00 | VATNOTE ---
R AC PIV infiltrate. PIV removed. Heat applied and extremity elevated. New L AC PIV placed.
[2025-09-27 18:10] LABS: Glucose - Point of Care 147 mg/dl (70-99)
[2025-09-27] MEDS: LIPITOR 10 MG PO (20:30)
[2025-09-27 21:33] LABS: Glucose - Point of Care 224 mg/dl (70-99)
[2025-09-27 23:54] VITALS: BP 130/79
[2025-09-28] MEDS: LR 1000 IV (03:07)
[2025-09-28] MEDS: SYNTHROID 50 MCG PO (05:16)
[2025-09-28 06:00] VITALS: BMI 31.2
--- NOTE | 2025-09-28 07:18 | W.PN.HOSP.TC ---
Today's Communication/Plan
-
Ophtho consult for ocular symptoms
Continue PT/OT
Assessment / Plan
Assessment / Plan
85yoF PMH HTN, HLD, Hypothyroid, NIDDM, seizures, depression, psoriasis, HFpEF, rheumatoid arthritis presenting from mechanical fall at home HS+ LOC-, on the floor for 4 hrs.
AFVSS. Hg stable, elevated WBC 13.8 repeat 8.3. CMP WNL except elevated BG. UA demonstrated RBC, negative for UTI. Head CT without findings of acute abnormality. HS not on blood thinners. CT LE knee effusion and bakers cyst. CT abd/pelvis with
findings of small pleural effusions and pericardial effusion. Pt has ecchymoses of L leg and abrasions on all 4 extremities. Goal to manage pain and find placement to rebuild strength. Nonoperable deformities of limbs from fall.
Today, AFVSS. Hgb stabilized. Cr stable 1.1 on 75ml/hr IVF. Continue pain control. Echo demonstrated small to mod pericardial effusion without hemodynamic significance, LVH, mild TR, thickened MV leaflets with moderate MR. PT/OT recommends skilled
rehab. Continued eye photosensitivity and unequal pupil constriction. Consult ophtho.
Echo: SUMMARY
1. Ejection fraction is 55% by volumetric assessment.
2. Compared to a prior transthoracic echocardiogram study from August 2010 There is a small to moderate pericardial effusion with no hemodynamic significance.
3. Small to moderate pericardial effusion measuring uo to 1.5 cm laterally, 1.4 cm inferiorly. This is of no hemodynamic significance.
4. Mild to moderate concentric left ventricular hypertrophy.
5. Mild tricuspid regurgitation. Estimated pulmonary artery pressure of 44 mmHg assuming a right atrial pressure of 3 mmHg.
6. Thickened mitral valve leaflets with posterior mitral annular calcification and moderate mitral regurgitation.
#ambulatory dysfunction
- unknown cause of fall +HS
- Head CT, RLE xray, CT ab/pelvis, RLE CT without findings of acute injury
- pain control
- PT/OT
- IVF
#L eye symptoms
- Ophtho consult
- possibly related to fall vs RA
#pericardial effusion
- incidental finding on CT
- Echo
#HTN
#hypothyroidism
#seizure disorder
#HFpEF
#RA
#psoriasis
- Chronic conditions stable
- Continue home medications
#T2DM
- SSI
- hold home metformin
- Continue glipizide
Code status: full code
DVT prophylaxis: Lovenox sq
Diet: diabetic
Anticipated Discharge: Within 24 hours
Subjective/Interval History
-
Date of Service: September 28, 2025
Pt reports continued L Leg pain and inability to open L eye. She states her knee throbs at times as is 7/10 pain but controlled on tylenol with the oxycodone as needed. Pt reports hand swelling that occurs with RA and stiffness.
Objective Data
-
Labs:
Laboratory Results
09/28/25
06:57
WBC Pending
Hgb Pending
Hct Pending
Plt Count Pending
Sodium Pending
Potassium Pending
Chloride Pending
Carbon Dioxide Pending
BUN Pending
Creatinine Pending
Glucose Pending
Calcium Pending
Total Bilirubin Pending
AST Pending
ALT Pending
Alkaline Phosphatase Pending
Vital Signs:
Vital Signs
Temp Pulse Resp BP Pulse Ox
97.7 F 93 16 130/79 93
09/27/25 23:54 09/27/25 23:54 09/27/25 23:54 09/27/25 23:54 09/27/25 23:54
I&O
09/27/25 09/28/25 09/29/25
06:59 06:59 06:59
Intake Total 80 / 80 440 / 440
Output Total 300 / 300 400 / 400
Balance -220 / -220 40 / 40
Physical Exam
-
General: No Apparent Distress and Comfortable
HEENT: Normocephalic, Moist Mucous Membranes and Other (abrasion on back of head with dried blood, tender to touch)
Respiratory: Clear to Auscultation and Non Labored Respirations
Cardiac: Regular Rhythm and S1/S2
GI: Soft, Nontender (no ecchymoses) and Nondistended
Musculoskeletal: Other (RLE knee swollen and tender, abrasions and tender L ankle, R dorsum of foot, bilateral hand swelling with RA nodules)
Skin: Warm and Dry
Neuro: AO x 3, No Motor Deficits, Central Nerve's Intact (L pupil constriction asymmetric and photosensitivity ) and No Sensory Deficits
Psych: Calm
[2025-09-28 07:46] LABS: Glucose - Point of Care 223 mg/dl (70-99)
[2025-09-28 07:49] VITALS: BP 116/56
[2025-09-28 08:15] LABS: Hematocrit 30.1 % (37.0-47.0); Hemoglobin 10.3 g/dL (12.0-16.0); Mean Corp Hgb Conc. 34.2 g/dL (33.0-37.0); Mean Corpuscular Volume 88.3 fL (81.0-99.0); Platelet Count 201 10^3/uL (130-400); Red Cell Dist. Width 13.8 % (11.5-14.5)
[2025-09-28] MEDS: ZOLOFT 50 MG PO (08:33)
[2025-09-28] MEDS: NOVOLOG FLEXPEN-MODERATE RESISTANCE 3 UNITS SC ×2 (08:33→17:30)
[2025-09-28] MEDS: NORVASC 2.5 MG PO (08:34)
[2025-09-28] MEDS: KEPPRA 500 MG PO (08:34)
[2025-09-28] MEDS: DESENEX/MITRAZOL/ZEASORB 1 APPLIC TOPICAL ×2 (08:35→21:00)
[2025-09-28 08:36] LABS: ALT (SGPT) < 10 U/L (0-35); AST (SGOT) 13 U/L (14-36); Albumin 2.6 g/dl (3.5-5.0); Alkaline Phosphatase 55 U/L (38-126); Blood Urea Nitrogen 24 mg/dl (7-17); Calcium 8.6 mg/dl (8.4-10.2); Carbon Dioxide 27 mmol/L (22-30); Chloride 102 mmol/L (98-107); Estimated Creatinine Clearance 34 ml/min; Glucose 207 mg/dl (70-99); Potassium 3.8 mmol/L (3.5-5.1); Sodium 133 mmol/L (135-145); Total Protein 5.3 g/dl (6.3-8.2); eGFR 49.24
[2025-09-28 08:49] VITALS: BP 116/56
[2025-09-28 11:59] LABS: Glucose - Point of Care 181 mg/dl (70-99)
[2025-09-28] MEDS: NOVOLOG FLEXPEN-MODERATE RESISTANCE SC (12:44)
[2025-09-28] MEDS: LR IV (13:45)
[2025-09-28 14:04] VITALS: BP 149/68
[2025-09-28 15:04] VITALS: BP 149/68
[2025-09-28 16:56] LABS: Glucose - Point of Care 221 mg/dl (70-99)
[2025-09-28] MEDS: LOVENOX 40 MG SC (17:30)
[2025-09-28] MEDS: LIPITOR 10 MG PO (21:07)
[2025-09-28 21:24] LABS: Glucose - Point of Care 205 mg/dl (70-99)
[2025-09-28 23:16] VITALS: BP 141/77
[2025-09-29] MEDS: TYLENOL 650 MG PO ×2 (02:00→20:25)
[2025-09-29 04:28] VITALS: BMI 31.7
[2025-09-29] MEDS: SYNTHROID 50 MCG PO (05:10)
--- NOTE | 2025-09-29 05:22 | PTCARENOTE ---
Patient receieved AAOx3. Laying inbed. patient c.o discomfort, repositioning as tolerated. patient oob to the chair. Patient given Tylenol for pain with some relief. oob to the commode x1 assist with walker use. POC discussed with pt and pt
agreeable. safety precautions in place, call maza within reach. bed alarm and chair alarm utilized.
--- NOTE | 2025-09-29 07:11 | W.PN.HOSP.TC ---
Today's Communication/Plan
-
F/u oupt with ophtho
Dispo planning
Assessment / Plan
Assessment / Plan
85yoF PMH HTN, HLD, Hypothyroid, NIDDM, seizures, depression, psoriasis, HFpEF, rheumatoid arthritis presenting from mechanical fall at home HS+ LOC-, on the floor for 4 hrs.
AFVSS. Hg stable, elevated WBC 13.8 repeat 8.3. CMP WNL except elevated BG. UA demonstrated RBC, negative for UTI. Head CT without findings of acute abnormality. HS not on blood thinners. CT LE knee effusion and bakers cyst. CT abd/pelvis with
findings of small pleural effusions and pericardial effusion. Pt has ecchymoses of L leg and abrasions on all 4 extremities. Goal to manage pain and find placement to rebuild strength. Nonoperable deformities of limbs from fall.
AFVSS. Hgb stabilized. Cr stable 1.1 on 75ml/hr IVF. Continue pain control. Echo demonstrated small to mod pericardial effusion without hemodynamic significance, LVH, mild TR, thickened MV leaflets with moderate MR. PT/OT recommends skilled rehab.
Continued eye photosensitivity and unequal pupil constriction. Consult ophtho.
AFVSS. 1 episode of HTN prior to dose of home amlodipine. Ophtho saw pt yesterday with findings of minimally reactive pupils and L sided ptosis, recommends outpt f/u. No concern uveitis or acute issue. Dispo planning.
Echo: SUMMARY
1. Ejection fraction is 55% by volumetric assessment.
2. Compared to a prior transthoracic echocardiogram study from August 2010 There is a small to moderate pericardial effusion with no hemodynamic significance.
3. Small to moderate pericardial effusion measuring uo to 1.5 cm laterally, 1.4 cm inferiorly. This is of no hemodynamic significance.
4. Mild to moderate concentric left ventricular hypertrophy.
5. Mild tricuspid regurgitation. Estimated pulmonary artery pressure of 44 mmHg assuming a right atrial pressure of 3 mmHg.
6. Thickened mitral valve leaflets with posterior mitral annular calcification and moderate mitral regurgitation.
#ambulatory dysfunction
- unknown cause of fall +HS
- Head CT, RLE xray, CT ab/pelvis, RLE CT without findings of acute injury
- pain control
- PT/OT
- IVF
#L eye symptoms
- Ophtho consult
- possibly related to fall vs RA. Ophtho recs outpt f/u
#pericardial effusion
- incidental finding on CT
- Echo
#HTN
#hypothyroidism
#seizure disorder
#HFpEF
#RA
#psoriasis
- Chronic conditions stable
- Continue home medications
#T2DM
- SSI
- hold home metformin
- Continue glipizide
Code status: full code
DVT prophylaxis: Lovenox sq
Diet: diabetic
Anticipated Discharge: Within 24 hours
Subjective/Interval History
-
Date of Service: September 29, 2025
Pt reports feeling well this morning with continued L knee throbbing. She reports her eye symptoms are not bothersome and she saw the eye doctor last night.
Objective Data
-
Labs:
Laboratory Results
09/29/25
06:00
WBC Pending
Hgb Pending
Hct Pending
Plt Count Pending
Sodium Pending
Potassium Pending
Chloride Pending
Carbon Dioxide Pending
BUN Pending
Creatinine Pending
Glucose Pending
Calcium Pending
Total Bilirubin Pending
AST Pending
ALT Pending
Alkaline Phosphatase Pending
Vital Signs:
Vital Signs
Temp Pulse Resp BP Pulse Ox
98.5 F 93 17 141/77 96
09/28/25 23:16 09/28/25 23:16 09/28/25 23:16 09/28/25 23:16 09/28/25 23:16
I&O
09/28/25 09/29/25 09/30/25
06:59 06:59 06:59
Intake Total 440 / 440 1320 / 1320
Output Total 400 / 400
Balance 40 / 40 1320 / 1320
Review of Systems
-
History Source: Patient
All other systems: Reviewed and negative
Physical Exam
-
General: No Apparent Distress and Comfortable
HEENT: Normocephalic and Atraumatic (abrasion on head)
Respiratory: Clear to Auscultation and Non Labored Respirations
Cardiac: Regular Rhythm and S1/S2
GI: Soft, Nontender and Nondistended
Musculoskeletal: No Edema (L knee edema and ecchymoses)
Skin: Warm and Dry
Neuro: AO x 3, Nonfocal/Grossly Intact and Central Nerve's Intact (poorly constricting R pupil this morning, asymmetric, L ptosis stable)
Psych: Calm
[2025-09-29 08:26] LABS: Glucose - Point of Care 153 mg/dl (70-99)
[2025-09-29 08:35] VITALS: BP 168/76; PULSE 83
[2025-09-29 08:45] VITALS: BP 176/79
[2025-09-29] MEDS: NOVOLOG FLEXPEN-MODERATE RESISTANCE 1 UNITS SC (08:50)
[2025-09-29] MEDS: ZOLOFT 50 MG PO (08:51)
[2025-09-29] MEDS: NORVASC 2.5 MG PO (08:51)
[2025-09-29] MEDS: DESENEX/MITRAZOL/ZEASORB 1 APPLIC TOPICAL ×2 (08:51→20:25)
[2025-09-29] MEDS: KEPPRA 500 MG PO (08:51)
[2025-09-29 09:06] VITALS: BP 168/76; PULSE 81
[2025-09-29 09:20] LABS: Hematocrit 34.9 % (37.0-47.0); Hemoglobin 11.7 g/dL (12.0-16.0); Mean Corp Hgb Conc. 33.5 g/dL (33.0-37.0); Mean Corpuscular Volume 87.9 fL (81.0-99.0); Platelet Count 281 10^3/uL (130-400); Red Cell Dist. Width 13.6 % (11.5-14.5)
[2025-09-29 10:56] LABS: ALT (SGPT) < 10 U/L (0-35); AST (SGOT) 16 U/L (14-36); Albumin 3.5 g/dl (3.5-5.0); Alkaline Phosphatase 72 U/L (38-126); Blood Urea Nitrogen 22 mg/dl (7-17); Calcium 9.2 mg/dl (8.4-10.2); Carbon Dioxide 27 mmol/L (22-30); Chloride 101 mmol/L (98-107); Estimated Creatinine Clearance 38 ml/min; Glucose 155 mg/dl (70-99); Potassium 4.1 mmol/L (3.5-5.1); Sodium 134 mmol/L (135-145); Total Protein 6.6 g/dl (6.3-8.2); eGFR 55.21
[2025-09-29 12:18] LABS: Glucose - Point of Care 229 mg/dl (70-99)
[2025-09-29] MEDS: NOVOLOG FLEXPEN-MODERATE RESISTANCE 3 UNITS SC ×2 (12:37→17:19)
--- NOTE | 2025-09-29 14:56 | CM ---
Addendum entered by Robyn Choi 09/29/25 15:42:
[facility] accepted if patient can get a transportation arranged before 7 pm. Per transportation dispatch manager, no times available before 7
Per [facility], due to staffing they are unable to take any admissions tomorrow
Original Note:
Chart reviewed. Discussed w/ PA, patient medically stable
Met w/ patient bedside, agreeable to SNF. Patient doesn't want to go back to [facility]. Patient interested in [facility] and is agreeable to additional facilities. Referrals sent in [facility]
Patient will need insurance auth
Plan: SNF
[2025-09-29 16:06] VITALS: BP 111/59
[2025-09-29 16:58] LABS: Glucose - Point of Care 243 mg/dl (70-99)
[2025-09-29] MEDS: LOVENOX 40 MG SC (17:20)
[2025-09-29] MEDS: LIPITOR 10 MG PO (20:26)
[2025-09-29 21:37] LABS: Glucose - Point of Care 230 mg/dl (70-99)
[2025-09-29 23:33] VITALS: BP 111/48
[2025-09-30] MEDS: SYNTHROID 50 MCG PO (05:07)
[2025-09-30 06:00] VITALS: BMI 31.2
[2025-09-30 07:25] LABS: Hematocrit 29.8 % (37.0-47.0); Hemoglobin 10.0 g/dL (12.0-16.0); Mean Corp Hgb Conc. 33.6 g/dL (33.0-37.0); Mean Corpuscular Volume 86.6 fL (81.0-99.0); Platelet Count 241 10^3/uL (130-400); Red Cell Dist. Width 13.5 % (11.5-14.5)
[2025-09-30 07:30] VITALS: BP 129/58
[2025-09-30 08:02] LABS: ALT (SGPT) < 10 U/L (0-35); AST (SGOT) 14 U/L (14-36); Albumin 2.8 g/dl (3.5-5.0); Alkaline Phosphatase 55 U/L (38-126); Blood Urea Nitrogen 24 mg/dl (7-17); Calcium 9.1 mg/dl (8.4-10.2); Carbon Dioxide 28 mmol/L (22-30); Chloride 104 mmol/L (98-107); Estimated Creatinine Clearance 41 ml/min; Glucose 144 mg/dl (70-99); Potassium 4.0 mmol/L (3.5-5.1); Sodium 134 mmol/L (135-145); Total Protein 5.8 g/dl (6.3-8.2); eGFR > 60.00
[2025-09-30] MEDS: DESENEX/MITRAZOL/ZEASORB 2 APPLIC TOPICAL (08:10)
[2025-09-30] MEDS: KEPPRA 500 MG PO (08:11)
[2025-09-30] MEDS: ZOLOFT 50 MG PO (08:11)
[2025-09-30] MEDS: NORVASC 2.5 MG PO (08:11)
[2025-09-30 08:34] LABS: Glucose - Point of Care 147 mg/dl (70-99)
--- NOTE | 2025-09-30 08:53 | W.PN.HOSP.TC ---
Today's Communication/Plan
-
Dispo planning
Feeling better today
Assessment / Plan
Assessment / Plan
85yoF PMH HTN, HLD, Hypothyroid, NIDDM, seizures, depression, psoriasis, HFpEF, rheumatoid arthritis presenting from mechanical fall at home HS+ LOC-, on the floor for 4 hrs.
09/27 AFVSS. Hg stable, elevated WBC 13.8 repeat 8.3. CMP WNL except elevated BG. UA demonstrated RBC, negative for UTI. Head CT without findings of acute abnormality. HS not on blood thinners. CT LE knee effusion and bakers cyst. CT abd/pelvis with
findings of small pleural effusions and pericardial effusion. Pt has ecchymoses of L leg and abrasions on all 4 extremities. Goal to manage pain and find placement to rebuild strength. Nonoperable deformities of limbs from fall.
09/28 AFVSS. Hgb stabilized. Cr stable 1.1 on 75ml/hr IVF. Continue pain control. Echo demonstrated small to mod pericardial effusion without hemodynamic significance, LVH, mild TR, thickened MV leaflets with moderate MR. PT/OT recommends skilled
rehab. Continued eye photosensitivity and unequal pupil constriction. Consult ophtho.
09/29 AFVSS. 1 episode of HTN prior to dose of home amlodipine. Ophtho saw pt yesterday with findings of minimally reactive pupils and L sided ptosis, recommends outpt f/u. No concern uveitis or acute issue. Dispo planning.
09/30 AFVSS on 2L oxygen, saturing appropriately on room air. Continued eye symptoms but improved L ptosis each day. Dispo planning per CM.
Echo: SUMMARY
1. Ejection fraction is 55% by volumetric assessment.
2. Compared to a prior transthoracic echocardiogram study from August 2010 There is a small to moderate pericardial effusion with no hemodynamic significance.
3. Small to moderate pericardial effusion measuring uo to 1.5 cm laterally, 1.4 cm inferiorly. This is of no hemodynamic significance.
4. Mild to moderate concentric left ventricular hypertrophy.
5. Mild tricuspid regurgitation. Estimated pulmonary artery pressure of 44 mmHg assuming a right atrial pressure of 3 mmHg.
6. Thickened mitral valve leaflets with posterior mitral annular calcification and moderate mitral regurgitation.
#ambulatory dysfunction
- unknown cause of fall +HS
- Head CT, RLE xray, CT ab/pelvis, RLE CT without findings of acute injury
- pain control
- PT/OT
- IVF
#L eye symptoms
- Ophtho consult
- possibly related to fall vs RA. Ophtho recs outpt f/u
#pericardial effusion
- incidental finding on CT
- Echo
#HTN
#hypothyroidism
#seizure disorder
#HFpEF
#RA
#psoriasis
- Chronic conditions stable
- Continue home medications
#T2DM
- SSI
- hold home metformin
- Continue glipizide
Code status: full code
DVT prophylaxis: Lovenox sq
Diet: diabetic
Anticipated Discharge: Within 24 hours
Subjective/Interval History
-
Date of Service: September 30, 2025
Pt reports feeling well this morning with continued knee pain that has improved and healing abrasions on her head and feet, improving hand swelling as well. She denies hx of unequal pupils; she used to see an eye doctor a long time ago. Denies eye
surgery hx.
Objective Data
-
Labs:
Laboratory Results
09/30/25
06:54
WBC 8.5
Hgb 10.0 L
Hct 29.8 L
Plt Count 241
Sodium 134 L
Potassium 4.0
Chloride 104
Carbon Dioxide 28
BUN 24 H
Creatinine 0.9
Glucose 144 H
Calcium 9.1
Total Bilirubin 0.6
AST 14
ALT < 10
Alkaline Phosphatase 55
Vital Signs:
Vital Signs
Temp Pulse Resp BP Pulse Ox
97.8 F 80 16 129/58 98
09/30/25 07:30 09/30/25 07:30 09/30/25 07:30 09/30/25 07:30 09/30/25 07:30
I&O
09/29/25 09/30/25 10/01/25
06:59 06:59 06:59
Intake Total 1320 / 1320 600 / 600
Balance 1320 / 1320 600 / 600
Physical Exam
-
General: Well Nourished, No Apparent Distress and Comfortable
HEENT: Normocephalic, Moist Mucous Membranes and Other (abrasion on head healing appropriately)
Respiratory: Clear to Auscultation (midlly reduced R basilar sounds) and Non Labored Respirations (on 2L oxygen)
Cardiac: Regular Rhythm and S1/S2
GI: Soft, Nontender and Nondistended
Musculoskeletal: Other (bilateral ecchymoses of knees, R knee swollen vs L, increased ROM limited less by pain)
Neuro: AO x 3, No Motor Deficits, Central Nerve's Intact (R mydrasis, larger than L without equal constriction, L ptosis) and No Sensory Deficits
Psych: Calm
[2025-09-30] MEDS: NOVOLOG FLEXPEN-MODERATE RESISTANCE SC (09:45)
[2025-09-30 12:05] LABS: Glucose - Point of Care 177 mg/dl (70-99)
[2025-09-30] MEDS: NOVOLOG FLEXPEN-MODERATE RESISTANCE 1 UNITS SC (12:30)
[2025-09-30 15:23] VITALS: BP 126/64
--- NOTE | 2025-09-30 16:00 | PTCARENOTE ---
Patient quite pleasant with no c/o pain. Patient's right knee is tender to palpation. Patient states, 'My knee is much better. I can tough it now.' Patient OOB to chair with walker. patient able to stand without assistance. Patient tolerated sitting
in chair for 2 hours. Patient was incontinent of small BM. Chair alarm maintained, call maza in reach.
[2025-09-30 17:09] LABS: Glucose - Point of Care 263 mg/dl (70-99)
[2025-09-30] MEDS: LOVENOX 40 MG SC (18:08)
[2025-09-30] MEDS: NOVOLOG FLEXPEN-MODERATE RESISTANCE 5 UNITS SC (18:09)
[2025-09-30] MEDS: TYLENOL 650 MG PO (20:51)
[2025-09-30] MEDS: DESENEX/MITRAZOL/ZEASORB 1 APPLIC TOPICAL (20:52)
[2025-09-30] MEDS: LIPITOR 10 MG PO (20:52)
[2025-09-30 21:41] LABS: Glucose - Point of Care 179 mg/dl (70-99)
[2025-09-30 23:44] VITALS: BP 118/48
[2025-10-01] MEDS: SYNTHROID 50 MCG PO (05:33)
[2025-10-01 05:58] VITALS: BMI 31.2
[2025-10-01 07:41] LABS: Glucose - Point of Care 180 mg/dl (70-99)
[2025-10-01 08:00] VITALS: BP 136/85
[2025-10-01] MEDS: KEPPRA 500 MG PO (08:06)
[2025-10-01] MEDS: DESENEX/MITRAZOL/ZEASORB 1 APPLIC TOPICAL (08:06)
[2025-10-01] MEDS: NORVASC 2.5 MG PO (08:06)
[2025-10-01] MEDS: NOVOLOG FLEXPEN-MODERATE RESISTANCE 1 UNITS SC ×2 (08:06→12:09)
[2025-10-01] MEDS: ZOLOFT 50 MG PO (08:10)
[2025-10-01 09:26] LABS: Hematocrit 31.8 % (37.0-47.0); Hemoglobin 10.7 g/dL (12.0-16.0); Mean Corp Hgb Conc. 33.6 g/dL (33.0-37.0); Mean Corpuscular Volume 86.6 fL (81.0-99.0); Platelet Count 299 10^3/uL (130-400); Red Cell Dist. Width 13.6 % (11.5-14.5)
--- NOTE | 2025-10-01 09:26 | W.PN.HOSP.TC ---
Today's Communication/Plan
-
Dispo planning
Assessment / Plan
Assessment / Plan
85yoF PMH HTN, HLD, Hypothyroid, NIDDM, seizures, depression, psoriasis, HFpEF, rheumatoid arthritis presenting from mechanical fall at home HS+ LOC-, on the floor for 4 hrs.
09/27 AFVSS. Hg stable, elevated WBC 13.8 repeat 8.3. CMP WNL except elevated BG. UA demonstrated RBC, negative for UTI. Head CT without findings of acute abnormality. HS not on blood thinners. CT LE knee effusion and bakers cyst. CT abd/pelvis with
findings of small pleural effusions and pericardial effusion. Pt has ecchymoses of L leg and abrasions on all 4 extremities. Goal to manage pain and find placement to rebuild strength. Nonoperable deformities of limbs from fall.
09/28 AFVSS. Hgb stabilized. Cr stable 1.1 on 75ml/hr IVF. Continue pain control. Echo demonstrated small to mod pericardial effusion without hemodynamic significance, LVH, mild TR, thickened MV leaflets with moderate MR. PT/OT recommends skilled
rehab. Continued eye photosensitivity and unequal pupil constriction. Consult ophtho.
09/29 AFVSS. 1 episode of HTN prior to dose of home amlodipine. Ophtho saw pt yesterday with findings of minimally reactive pupils and L sided ptosis, recommends outpt f/u. No concern uveitis or acute issue. Dispo planning.
09/30 AFVSS on 2L oxygen, saturing appropriately on room air. Continued eye symptoms but improved L ptosis each day. Dispo planning per CM.
10/01 AFVSS on room air. Healing appropriately. Dispo planning.
Echo: SUMMARY
1. Ejection fraction is 55% by volumetric assessment.
2. Compared to a prior transthoracic echocardiogram study from August 2010 There is a small to moderate pericardial effusion with no hemodynamic significance.
3. Small to moderate pericardial effusion measuring uo to 1.5 cm laterally, 1.4 cm inferiorly. This is of no hemodynamic significance.
4. Mild to moderate concentric left ventricular hypertrophy.
5. Mild tricuspid regurgitation. Estimated pulmonary artery pressure of 44 mmHg assuming a right atrial pressure of 3 mmHg.
6. Thickened mitral valve leaflets with posterior mitral annular calcification and moderate mitral regurgitation.
#ambulatory dysfunction
- unknown cause of fall +HS
- Head CT, RLE xray, CT ab/pelvis, RLE CT without findings of acute injury
- pain control
- PT/OT
- IVF
#L eye symptoms
- Ophtho consult
- possibly related to fall vs RA. Ophtho recs outpt f/u
#pericardial effusion
- incidental finding on CT
- Echo
#HTN
#hypothyroidism
#seizure disorder
#HFpEF
#RA
#psoriasis
- Chronic conditions stable
- Continue home medications
#T2DM
- SSI
- hold home metformin
- Continue glipizide
Code status: full code
DVT prophylaxis: Lovenox sq
Diet: diabetic
Anticipated Discharge: Today
Subjective/Interval History
-
Date of Service: October 01, 2025
Pt reports feeling well today, continuing to heal.
Objective Data
-
Labs:
Laboratory Results
10/01/25
08:21
WBC 10.6
Hgb 10.7 L
Hct 31.8 L
Plt Count 299 D
Sodium Pending
Potassium Pending
Chloride Pending
Carbon Dioxide Pending
BUN Pending
Creatinine Pending
Glucose Pending
Calcium Pending
Total Bilirubin Pending
AST Pending
ALT Pending
Alkaline Phosphatase Pending
Vital Signs:
Vital Signs
Temp Pulse Resp BP Pulse Ox
98.5 F 91 18 136/85 96
10/01/25 08:00 10/01/25 08:06 10/01/25 08:00 10/01/25 08:06 10/01/25 08:00
I&O
09/30/25 10/01/25 10/02/25
06:59 06:59 06:59
Intake Total 600 / 600 540 / 540
Balance 600 / 600 540 / 540
Physical Exam
-
General: Well Nourished, No Apparent Distress and Comfortable
HEENT: Normocephalic, Moist Mucous Membranes and Other (abrasion on head healing appropriately)
Respiratory: Clear to Auscultation (midlly reduced R basilar sounds) and Non Labored Respirations (on 2L oxygen)
Cardiac: Regular Rhythm and S1/S2
GI: Soft, Nontender and Nondistended
Musculoskeletal: Other (bilateral ecchymoses of knees, R knee swollen vs L, increased ROM limited less by pain)
Neuro: AO x 3, No Motor Deficits, Central Nerve's Intact (R mydrasis, larger than L without equal constriction, L ptosis) and No Sensory Deficits
Psych: Calm
[2025-10-01 09:38] LABS: ALT (SGPT) < 10 U/L (0-35); AST (SGOT) 16 U/L (14-36); Albumin 3.2 g/dl (3.5-5.0); Alkaline Phosphatase 65 U/L (38-126); Blood Urea Nitrogen 32 mg/dl (7-17); Calcium 9.3 mg/dl (8.4-10.2); Carbon Dioxide 25 mmol/L (22-30); Chloride 103 mmol/L (98-107); Estimated Creatinine Clearance 41 ml/min; Glucose 174 mg/dl (70-99); Potassium 4.5 mmol/L (3.5-5.1); Sodium 135 mmol/L (135-145); Total Protein 6.4 g/dl (6.3-8.2); eGFR > 60.00
--- NOTE | 2025-10-01 10:03 | CM ---
Addendum entered by Christine Mahan 10/01/25 13:24:
5pm transport
tt from [facility] inpatient
Addendum entered by Christine Mahan 10/01/25 13:12:
IMM Explained. In chart
Addendum entered by Christine Mahan 10/01/25 13:03:
AUTH APPROVAL FOR [facility]
AUTH APPROVAL #: [id number]
START DATE 10/01 NRD 10/05/25
call with updates to [phone]
all authoriztion information left with Reema at [facility]
notified son
PLAN: [facility] TODAY
REPORT #: [phone]
FAX #: [phone]
transportation forms on chart
Addendum entered by Christine Mahan 10/01/25 12:53:
CM called ins for authorization - spoke with January
Original Note:
spoke with Reema at [facility]
accepted patient at [facility] - will need ins auth
tt PT/OT to see today for updated notes
[facility] NPI # [id number]
DR. CARMELO WEBER NPI #: [id number]
PLAN: [facility], ONCE AUTH APPROVED
REPORT #: [phone]
FAX #: [phone]
[2025-10-01 10:42] VITALS: BP 181/85; PULSE 90; O2SAT 91
[2025-10-01 10:43] VITALS: BP 181/85; PULSE 90; O2SAT 91
[2025-10-01 11:58] LABS: Glucose - Point of Care 190 mg/dl (70-99)
[2025-10-01] MEDS: ROXICODONE 2.5 MG PO (15:12)
[2025-10-01 15:25] VITALS: BP 182/80
[2025-10-01] MEDS: COZAAR 50 MG PO (15:53)
[2025-10-01 16:03] VITALS: BP 165/63
--- NOTE | 2025-10-01 17:19 | W.DCSUMMARY ---
Documented by User: Karen Casey MD, Resident 10/02/25 07:01
Discharge Summary
Discharge Data
Date of Admission: 09/26/25
Date of Discharge: 10/01/25
-
Pending Results: No
Hospital Course
85yoF PMH HTN, HLD, Hypothyroid, NIDDM, seizures, depression, psoriasis, HFpEF, rheumatoid arthritis presenting from mechanical fall at home HS+ LOC-, on the floor for 4 hrs. Mercer scan Head, C/A/P with xrays demonstrated no acute abnormality. Home
medications continued.
09/27/25 AFVSS. Hg stable, elevated WBC 13.8 repeat 8.3. CMP WNL except elevated BG. UA demonstrated RBC, negative for UTI. Head CT without findings of acute abnormality. HS not on blood thinners. CT LE knee effusion and bakers cyst. CT abd/pelvis
with findings of small pleural effusions and pericardial effusion. Pt has ecchymoses of L leg and abrasions on all 4 extremities. Goal to manage pain and find placement to rebuild strength. Nonoperable deformities of limbs from fall. Mild JUANPABLO 1.1,
started on 75ml/r IVF.
09/28/25 AFVSS. Hgb stabilized. Cr stable 1.1 on 75ml/hr IVF. Continue pain control. Echo demonstrated small to mod pericardial effusion without hemodynamic significance, LVH, mild TR, thickened MV leaflets with moderate MR. PT/OT recommends skilled
rehab. Continued eye photosensitivity and unequal pupil constriction. Consult ophtho. HgA1c noted to be elevated 11.0, down from 15.5 in January of this year. Increased metformin on discharge and follow up with outpt provider.
09/29/25 AFVSS. 1 episode of HTN prior to dose of home amlodipine. Ophtho saw pt yesterday with findings of minimally reactive pupils and L sided ptosis, recommends outpt f/u. No concern uveitis or acute issue.
09/30 AFVSS on 2L oxygen, saturing appropriately on room air. Continued eye symptoms but improved L ptosis each day.
10/01 AFVSS on room air. Healing appropriately.
Echo: SUMMARY
1. Ejection fraction is 55% by volumetric assessment.
2. Compared to a prior transthoracic echocardiogram study from August 2010 There is a small to moderate pericardial effusion with no hemodynamic significance.
3. Small to moderate pericardial effusion measuring uo to 1.5 cm laterally, 1.4 cm inferiorly. This is of no hemodynamic significance.
4. Mild to moderate concentric left ventricular hypertrophy.
5. Mild tricuspid regurgitation. Estimated pulmonary artery pressure of 44 mmHg assuming a right atrial pressure of 3 mmHg.
6. Thickened mitral valve leaflets with posterior mitral annular calcification and moderate mitral regurgitation.
Discharge Plan
-
Patient Disposition: Skilled Nursing/SNF
Discharge Diagnosis/Procedures: ambulatory dysfunction
L eye ptosis
pericaridal effusion
poorly controlled NIDDM
R knee contusion
Diet: Diabetic, Carb Controlled
Activity: As tolerated
Driving Restrictions: As prior to admission
Bathing Restrictions: None
Referrals:
Jonh Ford MD [Active, Ophthalmology]
Referral Note: Please follow up with Dr. Ford for L ptosis.
Jack Santa MD [Family Provider, Family Practice]
Additional Discharge Medication Instructions: Tylenol Q6 for pain, can increase dose to 1000 mg if needed
Oxycodone 2.5 mg Q4PRN for moderate-severe pain
Voltaren PRN for finger pain
Prescriptions:
New
oxycodone 5 mg Tablet
2.5 mg PO Q4HPRN PRN (Reason: moderate pain) 5 Days Qty: 30 0RF
Continued
losartan 50 MG tablet
50 mg PO DAILY
levetiracetam 500 MG tablet
500 mg PO DAILY
amlodipine 2.5 MG tablet
2.5 mg PO DAILY
levothyroxine 50 MCG tablet
50 mcg PO DAILY
simvastatin 20 MG tablet
20 mg PO HS
acetaminophen 325 MG tablet
325 mg PO HS
sertraline 50 mg Tablet
50 mg PO DAILY
miconazole nitrate [Miconazorb AF] 2 % Powder
1 applic topical BID Qty: 85 0RF
tobramycin 0.3 % Drops
1 drp ophthalmic (eye) Q4HWA 3 Days Qty: 5 0RF
Rx Instructions:
Left eye. February 08, 2025 last day
acetaminophen 325 mg Tablet
650 mg PO Q4HPRN PRN (Reason: mild pain/PINEDA/temp> 100.4F) Qty: 90 0RF
Januvia 100 mg Tablet
100 mg PO DAILY Qty: 30 0RF
Rx Instructions:
Hold if not eating
glipizide 10 mg tablet
10 mg PO DAILY
Rx Instructions:
Hold if not eating.
metformin 1,000 mg tablet
500 mg PO BID@0800,1700
Rx Instructions:
Hold if not eating
Discharge Orders:
Discharge Patient (As Directed); Ordered 10/01/25
Ordered By: Kaiser Botello
Discharge Date and Time
Discharge Date/Time: 10/01/25 18:10
Print Language: CITIZ[place]

Documented by User: Kaiser Botello, DO 10/02/25 10:58
Discharge Summary
Discharge Data
Date of Admission: 10/01/25
Date of Discharge: 10/01/25
Total time spent discharging patient (in min): 31
Discharge Plan
-
Patient Disposition: Skilled Nursing/SNF
Discharge Diagnosis/Procedures: ambulatory dysfunction
L eye ptosis
pericaridal effusion
poorly controlled NIDDM
R knee contusion
Diet: Diabetic, Carb Controlled
Activity: As tolerated
Driving Restrictions: As prior to admission
Bathing Restrictions: None
Referrals:
Jonh Ford MD [Active, Ophthalmology]
Referral Note: Please follow up with Dr. Ford for L ptosis.
Jack Santa MD [Family Provider, [facility]]
Additional Discharge Medication Instructions: Tylenol Q6 for pain, can increase dose to 1000 mg if needed
Oxycodone 2.5 mg Q4PRN for moderate-severe pain
Voltaren PRN for finger pain
Prescriptions:
New
oxycodone 5 mg Tablet
2.5 mg PO Q4HPRN PRN (Reason: moderate pain) 5 Days Qty: 30 0RF
Continued
losartan 50 MG tablet
50 mg PO DAILY
levetiracetam 500 MG tablet
500 mg PO DAILY
amlodipine 2.5 MG tablet
2.5 mg PO DAILY
levothyroxine 50 MCG tablet
50 mcg PO DAILY
simvastatin 20 MG tablet
20 mg PO HS
acetaminophen 325 MG tablet
325 mg PO HS
sertraline 50 mg Tablet
50 mg PO DAILY
miconazole nitrate [Miconazorb AF] 2 % Powder
1 applic topical BID Qty: 85 0RF
tobramycin 0.3 % Drops
1 drp ophthalmic (eye) Q4HWA 3 Days Qty: 5 0RF
Rx Instructions:
Left eye. February 08, 2025 last day
acetaminophen 325 mg Tablet
650 mg PO Q4HPRN PRN (Reason: mild pain/PINEDA/temp> 100.4F) Qty: 90 0RF
Januvia 100 mg Tablet
100 mg PO DAILY Qty: 30 0RF
Rx Instructions:
Hold if not eating
glipizide 10 mg tablet
10 mg PO DAILY
Rx Instructions:
Hold if not eating.
metformin 1,000 mg tablet
500 mg PO BID@0800,1700
Rx Instructions:
Hold if not eating
Discharge Orders:
Discharge Patient (As Directed); Ordered 10/01/25
Ordered By: Kaiser Botello
Discharge Date and Time
Discharge Date/Time: 10/01/25 18:10
Print Language: CITIZEN OF [place]
== END 2025-10-01 18:10 | DRG 605 ==
LOC: 4 EAST ACU 07:53
PROVIDERS: Emergency Medicine; Nurse Practitioner Family; Physician Assistant; ADMITTING PHYSICIAN Internal Medicine; ATTENDING PHYSICIAN Internal Medicine; CONSULT PHYSICIAN Ophthalmology; EMERGENCY PHYSICIAN Student in an Organized Health Care Education/Training Program; FAMILY PHYSICIAN Family Medicine
DX: S80.01XA Contusion of right knee, initial encounter (principal); I50.32 Chronic diastolic (congestive) heart failure; I31.39 Other pericardial effusion (noninflammatory); N17.9 Acute kidney failure, unspecified; H02.402 Unspecified ptosis of left eyelid; R26.2 Difficulty in walking, not elsewhere classified; I11.0 Hypertensive heart disease with heart failure; E03.9 Hypothyroidism, unspecified; E11.65 Type 2 diabetes mellitus with hyperglycemia; F32.A Depression, unspecified; G40.909 Epilepsy, unspecified, not intractable, without status epilepticus; H57.02 Anisocoria; M71.20 Synovial cyst of popliteal space [Baker], unspecified knee; E78.5 Hyperlipidemia, unspecified; L40.9 Psoriasis, unspecified; M06.9 Rheumatoid arthritis, unspecified; S09.90XA Unspecified injury of head, initial encounter; W01.0XXA Fall on same level from slipping, tripping and stumbling without subsequent striking against object, initial encounter; E66.9 Obesity, unspecified; Z68.31 Body mass index [BMI] 31.0-31.9, adult; Z87.891 Personal history of nicotine dependence; Z79.890 Hormone replacement therapy; Z79.84 Long term (current) use of oral hypoglycemic drugs
CPT/HCPCS: 70450; 71045; 73564; 73590; 73700; 74177; 80048; 80053; 81003; 81015; 82962; 83036; 83880; 85027; 93306; 97116; 97163; 97167; 97530; 97535; 99285; Q9967

== ENCOUNTER → 2025-10-06 10:57 | Outpatient (REF) | payer OTHER, SELFPAY ==
[2025-10-06 11:32] LABS: Hematocrit 29.6 % (37.0-47.0); Hemoglobin 9.8 g/dL (12.0-16.0); Mean Corp Hgb Conc. 33.1 g/dL (33.0-37.0); Mean Corpuscular Volume 87.6 fL (81.0-99.0); Nucleated Red Blood Cells % 0 %; Platelet Count 362 10^3/uL (130-400); Red Cell Dist. Width 13.7 % (11.5-14.5)
[2025-10-06 11:53] LABS: ALT (SGPT) < 10 U/L (0-35); AST (SGOT) 18 U/L (14-36); Albumin 2.9 g/dl (3.5-5.0); Alkaline Phosphatase 66 U/L (38-126); Blood Urea Nitrogen 23 mg/dl (7-17); Calcium 8.8 mg/dl (8.4-10.2); Carbon Dioxide 25 mmol/L (22-30); Chloride 105 mmol/L (98-107); Glucose 52 mg/dl (70-99); Magnesium 1.8 mg/dl (1.6-2.3); Potassium 4.3 mmol/L (3.5-5.1); Sodium 134 mmol/L (135-145); Total Protein 6.0 g/dl (6.3-8.2); eGFR > 60.00
== END ==
LOC: OLABWHC 10:57
PROVIDERS: ATTENDING PHYSICIAN Family Medicine
DX: E03.9 Hypothyroidism, unspecified (principal); E11.42 Type 2 diabetes mellitus with diabetic polyneuropathy; I10 Essential (primary) hypertension
CPT/HCPCS: 36415; 80053; 83735; 85025